=== PATIENT | female | born 1945 | race Caucasian/White ===

== ENCOUNTER → 2017-03-07 | Outpatient (CLI) | payer MEDICARE, SELFPAY | PROVIDERS: PCP Family Medicine; Visit Provider Family Medicine | DX: Z13.820 Encounter for screening for osteoporosis (principal); Z78.0 Asymptomatic menopausal state | CPT/HCPCS: 77080 ==

== ENCOUNTER → 2018-08-23 11:28 | Outpatient (CLI) | payer MEDICARE, SELFPAY ==
--- NOTE | 2018-08-23 11:34 | XR_ITS ---
XR foot LT min 3V HISTORY: ITS.REASON: LT FOOT PAIN ORDERING PHYSICIAN: Jacinto Davis MD PATIENT AGE: 73 years COMPARISON: None FINDINGS: There are moderate osteoarthritic changes of the midfoot at the first second and third and fourth metatarsal tarsal joints as well as the talonavicular joint and navicular cuneiform joint. No acute fracture or dislocation. Normal alignment. IMPRESSION: Mid foot osteoarthritis
== END ==
PROVIDERS: PCP Family Medicine; Visit Provider Family Medicine
DX: M79.672 Pain in left foot (principal)
CPT/HCPCS: 73630

== ENCOUNTER → 2018-08-28 08:44 | Outpatient (CLI) | payer MEDICARE, SELFPAY ==
--- NOTE | 2018-08-28 08:53 | CI_ITS ---
Cerebrovascular Exam Indications: Follow-up carotid 433.10. IMPRESSIONS 1. The bilateral vertebral arteries are patent with normal antegrade flow. 2. Study suggests 20-49% stenosis involving the right internal carotid artery. No change from the study of 26-Sep-2016. 3. Study suggests 20-49% stenosis involving the left internal carotid artery. No change from the study of 26-Sep-2016. History: Risk factors: Hypertension. Hyperlipidemia. Carotid duplex study. Complete study and Doppler flow study including spectral analysis, color and nguyen scale imaging. Height: Height: 160cm. Height: 63in. Weight: Weight: 84.8kg. Weight: 186.6lb. Body mass index: BMI: 33.1kg/m^2. Body surface area: BSA: 1.98m^2. Location: Vascular laboratory. Patient status: Outpatient. Tables: Arterial flow: + +--------+--------+ Location V sys V ed + +--------+--------+ Right CCA - proximal 131cm/s 37.7cm/s + +--------+--------+ Right CCA - distal 138cm/s 39.3cm/s + +--------+--------+ Right ECA 110cm/s 22.4cm/s + +--------+--------+ Right ICA - proximal 112cm/s 23.7cm/s + +--------+--------+ Right ICA - mid 91.2cm/s 25.5cm/s + +--------+--------+ Right ICA - distal 109cm/s 25.5cm/s + +--------+--------+ Right vertebral 37.6cm/s 14.7cm/s + +--------+--------+ Left CCA - proximal 106cm/s 31.4cm/s + +--------+--------+ Left CCA - distal 115cm/s 39.3cm/s + +--------+--------+ Left ECA 100cm/s 24.3cm/s + +--------+--------+ Left ICA - proximal 106cm/s 33.4cm/s + +--------+--------+ Left ICA - mid 98.3cm/s 33.3cm/s + +--------+--------+ Left ICA - distal 97.5cm/s 35.2cm/s + +--------+--------+ Left vertebral 22.2cm/s 7.5cm/s + +--------+--------+ Velocity ratios: + + + + + + Right, V sys Right, V ed Left, V sys Left, V ed + + + + + + Max ICA/dist CCA 0.81 0.65 0.92 0.9 + + + + + + (Report amended ) Electronically signed by: Juan J Marcos [id number]
== END ==
PROVIDERS: PCP Family Medicine; Visit Provider Family Medicine
DX: I65.23 Occlusion and stenosis of bilateral carotid arteries (principal)
CPT/HCPCS: 93880

== ENCOUNTER → 2018-09-19 10:46 | Outpatient (CLI) | payer MEDICARE, SELFPAY ==
[2018-09-19 12:05] LABS: Alanine Aminotransferase 23 U/L (12-78); Albumin Level 3.4 gm/dL (3.4-5.0); Alkaline Phosphatase 82 U/L (46-116); Anion Gap 9.8 mEq/L (5-15); Aspartate Amino Transferase 15 U/L (15-37); Bilirubin,Total 0.6 mg/dL (0.2-1.0); Blood Urea Nitrogen 13 mg/dL (7-18); Calcium 9.9 mg/dL (8.5-10.1); Carbon Dioxide 30 mmol/L (21.0-32.0); Chloride 107 mmol/L (98-107); Creatinine,Serum 0.88 mg/dL (0.55-1.02); Estimated Glomerular Filt Rate 63 ml/min (>60); GFR (African American) 76 ML/MIN (>60); Globulin 3.5 gm/dl (1.3-3.2); Glucose 88 mg/dL (74-106); Potassium 4.8 mmoL/L (3.5-5.1); Sodium 142 mmol/L (136-145); Total Protein,Serum 6.9 gm/dL (6.4-8.2)
[2018-09-19 16:12] LABS: Basophils # 0.1 K/mm3 (0-0.2); Basophils % 1.5 % (0.1-2.0); Eosinophils # 0.2 K/mm3 (0.0-0.4); Eosinophils % 2.4 % (0.1-12.0); Hematocrit 41.6 % (37.0-47.0); Hemoglobin 12.9 g/dL (12.2-16.2); Lymphocytes # 1.8 K/mm3 (0.7-4.5); Lymphocytes % 26.9 % (10-50); Mean Corpuscular HGB Conc 31.1 g/dL (31.8-35.4); Mean Corpuscular Hemoglobin 28.1 pg (27.0-31.2); Mean Corpuscular Volume 90.4 fl (81-99); Mean Platelet Volume 9.1 fl (7.4-10.4); Monocytes # 0.4 K/mm3 (0.1-1.0); Monocytes % 5.3 % (1.7-9.3); Neutrophils # 4.4 K/mm3 (1.8-7.8); Neutrophils % 63.8 % (37.0-80.0); Red Blood Count 4.61 M/mm3 (4.20-5.40); Red Cell Distribution Width 13.2 % (11.5-17.5); White Blood Count 6.8 K/mm3 (4.8-10.8)
[2018-09-19 17:41] LABS: Platelet Count 710 K/mm3 (142-424)
== END ==
PROVIDERS: Visit Provider Internal Medicine Medical Oncology
DX: D64.9 Anemia, unspecified (principal); D47.3 Essential (hemorrhagic) thrombocythemia
CPT/HCPCS: 36415; 80053; 81270; 85025

== ENCOUNTER → 2018-12-18 09:49 | Outpatient (CLI) | payer MEDICARE, SELFPAY ==
[2018-12-18 10:10] LABS: Basophils # 0.2 K/mm3 (0-0.2); Eosinophils # 0.2 K/mm3 (0.0-0.4); Eosinophils % 2.5 % (0.1-12.0); Hematocrit 43.2 % (37.0-47.0); Hemoglobin 12.7 g/dL (12.2-16.2); Lymphocytes # 2.4 K/mm3 (0.7-4.5); Mean Corpuscular HGB Conc 29.5 g/dL (31.8-35.4); Mean Corpuscular Hemoglobin 28.1 pg (27.0-31.2); Mean Corpuscular Volume 95.3 fl (81-99); Monocytes # 0.6 K/mm3 (0.1-1.0); Monocytes % 7.9 % (1.7-9.3); Neutrophils # 4.6 K/mm3 (1.8-7.8); Neutrophils % 57.6 % (37.0-80.0); Platelet Count 797 K/mm3 (142-424); Red Blood Count 4.53 M/mm3 (4.20-5.40); Red Cell Distribution Width 14.1 % (11.5-17.5)
[2018-12-18 11:15] LABS: Alanine Aminotransferase 26 U/L (12-78); Albumin Level 3.6 gm/dL (3.4-5.0); Albumin/Globulin Ratio 0.9 (1.1-1.8); Alkaline Phosphatase 82 U/L (46-116); Anion Gap 10.3 mEq/L (5-15); Aspartate Amino Transferase 18 U/L (15-37); Bilirubin,Total 0.6 mg/dL (0.2-1.0); Blood Urea Nitrogen 18 mg/dL (7-18); Calcium 10.3 mg/dL (8.5-10.1); Carbon Dioxide 31 mmol/L (21.0-32.0); Chloride 105 mmol/L (98-107); Creatinine,Serum 0.89 mg/dL (0.55-1.02); Estimated Glomerular Filt Rate 62 ml/min (>60); GFR (African American) 75 ML/MIN (>60); Globulin 3.8 gm/dl (1.3-3.2); Glucose 89 mg/dL (74-106); Potassium 5.3 mmoL/L (3.5-5.1); Sodium 141 mmol/L (136-145); Total Protein,Serum 7.4 gm/dL (6.4-8.2)
== END ==
PROVIDERS: Visit Provider Internal Medicine Medical Oncology
DX: D47.3 Essential (hemorrhagic) thrombocythemia (principal); I65.23 Occlusion and stenosis of bilateral carotid arteries
CPT/HCPCS: 36415; 80053; 81270; 85025

== ENCOUNTER → 2019-01-09 08:56 | Outpatient (CLI) | payer MEDICARE, SELFPAY ==
[2019-01-09 09:14] LABS: Basophils # 0.1 K/mm3 (0-0.2); Basophils % 1.7 % (0.1-2.0); Eosinophils # 0.2 K/mm3 (0.0-0.4); Eosinophils % 2.5 % (0.1-12.0); Hematocrit 42.5 % (37.0-47.0); Hemoglobin 13.4 g/dL (12.2-16.2); Lymphocytes # 2.8 K/mm3 (0.7-4.5); Lymphocytes % 35.2 % (10-50); Mean Corpuscular HGB Conc 31.5 g/dL (31.8-35.4); Mean Corpuscular Hemoglobin 29.5 pg (27.0-31.2); Mean Corpuscular Volume 93.7 fl (81-99); Mean Platelet Volume 9.1 fl (7.4-10.4); Monocytes # 0.5 K/mm3 (0.1-1.0); Monocytes % 6.6 % (1.7-9.3); Neutrophils # 4.2 K/mm3 (1.8-7.8); Neutrophils % 54.1 % (37.0-80.0); Platelet Count 698 K/mm3 (142-424); Red Blood Count 4.53 M/mm3 (4.20-5.40); Red Cell Distribution Width 13.5 % (11.5-17.5); White Blood Count 7.8 K/mm3 (4.8-10.8)
== END ==
PROVIDERS: Visit Provider Internal Medicine Medical Oncology
DX: D47.3 Essential (hemorrhagic) thrombocythemia (principal)
CPT/HCPCS: 36415; 85025

== ENCOUNTER → 2019-01-23 09:06 | Outpatient (CLI) | payer MEDICARE, SELFPAY ==
[2019-01-23 09:23] LABS: Basophils # 0.1 K/mm3 (0-0.2); Basophils % 1.5 % (0.1-2.0); Eosinophils # 0.3 K/mm3 (0.0-0.4); Eosinophils % 3.6 % (0.1-12.0); Hematocrit 43.3 % (37.0-47.0); Lymphocytes # 2.3 K/mm3 (0.7-4.5); Lymphocytes % 32.4 % (10-50); Mean Corpuscular HGB Conc 32.4 g/dL (31.8-35.4); Mean Corpuscular Volume 95.6 fl (81-99); Mean Platelet Volume 9.3 fl (7.4-10.4); Monocytes # 0.8 K/mm3 (0.1-1.0); Neutrophils # 3.6 K/mm3 (1.8-7.8); Neutrophils % 51.5 % (37.0-80.0); Platelet Count 600 K/mm3 (142-424); Red Blood Count 4.53 M/mm3 (4.20-5.40); Red Cell Distribution Width 14.3 % (11.5-17.5)
== END ==
PROVIDERS: Visit Provider Internal Medicine Medical Oncology
DX: D47.3 Essential (hemorrhagic) thrombocythemia (principal)
CPT/HCPCS: 36415; 85025

== ENCOUNTER → 2019-06-24 08:41 | Outpatient (CLI) | payer MEDICARE, SELFPAY ==
[2019-06-24 09:19] LABS: Basophils # 0.1 K/mm3 (0-0.2); Basophils % 1.6 % (0.1-2.0); Eosinophils # 0.1 K/mm3 (0.0-0.4); Eosinophils % 2.4 % (0.1-12.0); Hematocrit 41.6 % (37.0-47.0); Hemoglobin 13.2 g/dL (12.2-16.2); Lymphocytes % 34.5 % (10-50); Mean Corpuscular HGB Conc 31.7 g/dL (31.8-35.4); Mean Corpuscular Hemoglobin 32.4 pg (27.0-31.2); Mean Corpuscular Volume 102.1 fl (81-99); Mean Platelet Volume 8.5 fl (7.4-10.4); Monocytes # 0.4 K/mm3 (0.1-1.0); Monocytes % 6.6 % (1.7-9.3); Neutrophils # 3.2 K/mm3 (1.8-7.8); Neutrophils % 54.9 % (37.0-80.0); Platelet Count 551 K/mm3 (142-424); Red Blood Count 4.07 M/mm3 (4.20-5.40); Red Cell Distribution Width 13.7 % (11.5-17.5); White Blood Count 5.9 K/mm3 (4.8-10.8)
== END ==
PROVIDERS: Visit Provider Internal Medicine Medical Oncology
DX: D47.3 Essential (hemorrhagic) thrombocythemia (principal)
CPT/HCPCS: 36415; 85025

== ENCOUNTER → 2019-09-03 08:47 | Outpatient (CLI) | payer MEDICARE, SELFPAY ==
--- NOTE | 2019-09-03 08:50 | XR_ITS ---
PROCEDURE: XR DEXA AXIAL SKELETON CLINICAL HISTORY: OSTEOPENIA l COMPARISON: No exams were available for comparison FINDINGS: The Right Hip BMD is 0.735 with a T-Score of -1.0. The Left hip BMD is 0.638 with a T-Score of -1.9. The Lumbar spine BMD is 1.010 with a T-Score of -0.3. IMPRESSION: This patient is considered osteopenic according to the World Health Organization criteria. Fracture risk is moderate. Treatment is advised. Based on these results of follow-up exam is recommended in 2 years Dictated by: Juan J Marcos MD 09/08/2019 21:39 Electronically signed by Juan J Marcos MD in [place] 09/09/2019 07:53
== END ==
PROVIDERS: PCP Family Medicine; Visit Provider Family Medicine
DX: M85.89 Other specified disorders of bone density and structure, multiple sites (principal)
CPT/HCPCS: 77080

== ENCOUNTER → 2019-09-23 07:59 | Outpatient (CLI) | payer MEDICARE, SELFPAY ==
[2019-09-23 08:58] LABS: Basophils # 0.1 K/mm3 (0-0.2); Eosinophils # 0.2 K/mm3 (0.0-0.4); Eosinophils % 2.7 % (0.1-12.0); Hematocrit 40.3 % (37.0-47.0); Hemoglobin 13.3 g/dL (12.2-16.2); Lymphocytes # 2.8 K/mm3 (0.7-4.5); Lymphocytes % 43.3 % (10-50); Mean Corpuscular Hemoglobin 34.3 pg (27.0-31.2); Mean Corpuscular Volume 104.2 fl (81-99); Mean Platelet Volume 8.5 fl (7.4-10.4); Monocytes # 0.4 K/mm3 (0.1-1.0); Monocytes % 5.7 % (1.7-9.3); Neutrophils % 46.3 % (37.0-80.0); Platelet Count 516 K/mm3 (142-424); Red Blood Count 3.87 M/mm3 (4.20-5.40); Red Cell Distribution Width 14.2 % (11.5-17.5); White Blood Count 6.6 K/mm3 (4.8-10.8)
== END ==
PROVIDERS: Visit Provider Internal Medicine Medical Oncology
DX: D47.3 Essential (hemorrhagic) thrombocythemia (principal); Z79.899 Other long term (current) drug therapy
CPT/HCPCS: 36415; 85025

== ENCOUNTER → 2019-12-18 12:23 | Outpatient (CLI) | payer MEDICARE, SELFPAY ==
[2019-12-18 13:09] LABS: Basophils # 0.1 K/mm3 (0-0.2); Basophils % 1.7 % (0.1-2.0); Eosinophils # 0.1 K/mm3 (0.0-0.4); Eosinophils % 1.7 % (0.1-12.0); Hematocrit 43.1 % (37.0-47.0); Hemoglobin 13.6 g/dL (12.2-16.2); Lymphocytes # 2.5 K/mm3 (0.7-4.5); Lymphocytes % 34.9 % (10-50); Mean Corpuscular HGB Conc 31.6 g/dL (31.8-35.4); Mean Corpuscular Hemoglobin 33.7 pg (27.0-31.2); Mean Corpuscular Volume 106.7 fl (81-99); Mean Platelet Volume 8.1 fl (7.4-10.4); Monocytes # 0.5 K/mm3 (0.1-1.0); Monocytes % 6.9 % (1.7-9.3); Neutrophils % 54.8 % (37.0-80.0); Platelet Count 588 K/mm3 (142-424); Red Blood Count 4.04 M/mm3 (4.20-5.40); Red Cell Distribution Width 13.9 % (11.5-17.5); White Blood Count 7.3 K/mm3 (4.8-10.8)
[2019-12-18 14:52] LABS: Chloride 101 mmol/L (98-107); Sodium 140 mmol/L (136-145)
[2019-12-18 14:53] LABS: Potassium 5.1 mmoL/L (3.5-5.1)
[2019-12-18 14:55] LABS: Alanine Aminotransferase 22 U/L (12-78); Albumin Level 4.6 g/dl (3.5-5.0); Albumin/Globulin Ratio 1.4 (1.1-1.8); Alkaline Phosphatase 83 U/L (38-126); Anion Gap 14.1 mEq/L (5-15); Aspartate Amino Transferase 31 U/L (14-36); Bilirubin,Total 0.8 mg/dl (0.2-1.3); Blood Urea Nitrogen 19 mg/dl (7-17); Carbon Dioxide 30 mmol/L (22.0-30.0); Estimated Glomerular Filt Rate 70 ml/min (>60); GFR (African American) 85 ML/MIN (>60); Globulin 3.4 g/dL (1.3-3.2)
[2019-12-18 14:56] LABS: Calcium 10.9 mg/dl (8.4-10.2); Glucose 85 mg/dl (74-100)
== END ==
PROVIDERS: Visit Provider Internal Medicine Medical Oncology
DX: D47.3 Essential (hemorrhagic) thrombocythemia (principal)
CPT/HCPCS: 36415; 80053; 85025

== ENCOUNTER 2020-03-13 08:59 | Emergency (ER) | payer MEDICARE, SELFPAY ==
[2020-03-13 09:05] VITALS: BP 134/72; PULSE 67; RESP 20; TEMP 36.8; O2SAT 99; BMI 31.8
--- NOTE | 2020-03-13 09:27 | HMH.EDUTC ---
[facility] [place] Disposition Clinical Impression: Exposure to COVID-19 virus Disposition: Home, Self-Care Condition on Discharge: Good Instructions: DI for COVID-19 (Suspected or Confirmed ), Preventing the Spread of Coronavirus Discharge Instructions Additional Instructions: Drink plenty of fluids. Take tylenol for pain or fever. Return if you begin to have difficulty breathing. Follow up with your regular doctor. GO TO THE ER FOR ANY WORSENING SYMPTOMS Referrals: Jacinto Davis MD [Primary Care Provider] - Time of Disposition: 09:39 Medical Decision Making - Medical Records Medical records reviewed: No: I reviewed the patient's medical records. - Lucio Inquiry Pt receiving controlled substance: No Vital Signs: 03/13/20 09:05 03/13/20 09:50 Temperature 98.3 F 98.3 F Temperature Source Oral Pulse Rate 67 Pulse Rate [Right Brachial] 67 Respiratory Rate 20 20 Blood Pressure 134/72 Blood Pressure [Right Arm] 134/72 Blood Pressure Mean [Right Arm] 92 Blood Pressure Source [Right Arm] Automatic Cuff Blood Pressure Position [Right Arm] Sitting 02 Sat by Pulse Oximetry 99 Oxygen Delivery Method Room Air Orders (Tests/Meds): ORDERS Category Date Time Status Covid-19 Nasal PCR ([facility]) Routine Lab 03/13/20 09:15 Received [facility] [place] HPI - General Stated complaint: covid exposure Time Seen by Provider: 03/13/20 09:27 - History of Present Illness Provider Complaint: She states that she has been exposed to covid by a family member. This occured several days ago. She denies any symptoms so far. - Related Data Home Medications Medication Instructions Recorded Confirmed lisinopril 20 1 tab PO DAILY 09/19/18 02/26/20 mg-hydrochlorothiazide 12.5 mg tablet simvastatin 20 mg tablet 20 mg PO QPM 09/19/18 02/26/20 hydroxyurea 500 mg capsule 500 mg PO DAILY 09/25/19 02/26/20 Allergies Allergy/AdvReac Type Severity Reaction Status Date / Time No Known Allergies Allergy Verified 09/25/19 10:51 [facility] History - Hepatitis A Screen Attestation statement:: This patient has been screened for Hepatitis A risk factors. I have reviewed the patient's past medical history: Yes Other Medical History: Reports: Hypothyroidism Laterality Cases: Left: Breast Biopsy Other Surgeries: Yes: Thyroidectomy, Other - Social History Smoking Status: Never smoker Alcohol Intake: never Substance Use Type: denies use Occupational Status: retired Housing: house Family Hx:: Cancer Comment: dad had CHF ROS Obtained: Yes All systems reviewed & no additional complaints - Constitutional Constitutional: Reports system reviewed and no additional complaints, except as docu - Eyes Eyes: Reports system reviewed and no additional complaints, except as docu - ENT Ears, Nose, Mouth, and Throat: Reports system reviewed and no additional complaints, except as docu - Cardiovascular Cardiovascular: Reports system reviewed and no additional complaints, except as docu - Respiratory Respiratory: Yes system reviewed and no additional complaints, except as docu - Gastrointestinal Gastrointestingal: Reports: system reviewed and no additional complaints, except as docu Physical Exam - General General appearance: alert, in no apparent distress - Head Head exam: atraumatic, normocephalic, normal inspection - Eye Eye exam: Present: normal appearance, PERRL, EOMI - ENT ENT exam: Present: normal exam, normal oropharynx, mucous membranes moist, TM's normal bilaterally, normal external ear exam - Neck Neck exam: Present: normal inspection, full ROM, trachea midline. Absent: meningismus, lymphadenopathy - Chest Chest inspection: Present: normal inspection, symmetric chest wall rise. Absent: tenderness - Respiratory Respiratory exam: Present: normal lung sounds bilaterally. Absent: respiratory distress - Cardiovascular Cardiovascular exam: Present: regular rate, normal rhythm. A
[2020-03-13 09:50] VITALS: BP 134/72; PULSE 67; RESP 20; TEMP 36.8; O2SAT 99
--- NOTE | 2020-03-13 13:34 | PC.NURSE ---
patient notified of positive covid results
== END 2020-03-13 09:50 | disposition home or self-care (01) ==
PROVIDERS: Emergency Provider Nurse Practitioner Family; PCP Family Medicine
DX: U07.1 COVID-19 (principal); I10 Essential (primary) hypertension; E03.9 Hypothyroidism, unspecified; Z79.899 Other long term (current) drug therapy
CPT/HCPCS: G0463; 99202; U0003

== ENCOUNTER → 2020-06-28 08:56 | Outpatient (CLI) | payer MEDICARE, SELFPAY ==
[2020-06-28 09:11] LABS: Basophils # 0.1 K/mm3 (0-0.2); Basophils % 2.2 % (0.1-2.0); Eosinophils # 0.2 K/mm3 (0.0-0.4); Eosinophils % 2.9 % (0.1-12.0); Hematocrit 41.6 % (37.0-47.0); Hemoglobin 13.3 g/dL (12.2-16.2); Lymphocytes # 2.9 K/mm3 (0.7-4.5); Lymphocytes % 44.9 % (10-50); Mean Corpuscular Hemoglobin 32.9 pg (27.0-31.2); Mean Corpuscular Volume 102.9 fl (81-99); Mean Platelet Volume 8.6 fl (7.4-10.4); Monocytes # 0.5 K/mm3 (0.1-1.0); Monocytes % 7.8 % (1.7-9.3); Neutrophils # 2.7 K/mm3 (1.8-7.8); Neutrophils % 42.2 % (37.0-80.0); Platelet Count 567 K/mm3 (142-424); Red Blood Count 4.05 M/mm3 (4.20-5.40); Red Cell Distribution Width 14.7 % (11.5-17.5); White Blood Count 6.4 K/mm3 (4.8-10.8)
[2020-06-28 09:56] LABS: Alanine Aminotransferase 38 U/L (12-78); Albumin Level 4.1 g/dl (3.5-5.0); Albumin/Globulin Ratio 1.2 (1.1-1.8); Alkaline Phosphatase 80 U/L (38-126); Aspartate Amino Transferase 35 U/L (14-36); Bilirubin,Total 0.4 mg/dl (0.2-1.3); Blood Urea Nitrogen 17 mg/dl (7-17); Calcium 10.4 mg/dl (8.4-10.2); Carbon Dioxide 27 mmol/L (22.0-30.0); Chloride 107 mmol/L (98-107); Estimated Glomerular Filt Rate 70 ml/min (>60); GFR (African American) 85 ML/MIN (>60); Globulin 3.3 g/dL (1.3-3.2); Glucose 99 mg/dl (74-100); Sodium 142 mmol/L (136-145); Total Protein,Serum 7.4 g/dl (6.3-8.2)
== END ==
PROVIDERS: Visit Provider Internal Medicine Medical Oncology
DX: D64.9 Anemia, unspecified (principal)
CPT/HCPCS: 36415; 80053; 85025

== ENCOUNTER → 2020-07-10 10:40 | Outpatient (CLI) | payer MEDICARE, SELFPAY | PROVIDERS: PCP Family Medicine; Visit Provider Family Medicine | DX: Z20.822 Contact with and (suspected) exposure to COVID-19 (principal); U07.1 COVID-19 | CPT/HCPCS: U0003 ==

== ENCOUNTER → 2020-08-30 13:16 | Outpatient (CLI) | payer MEDICARE, SELFPAY ==
--- NOTE | 2020-08-30 | CA_ITS ---
APPROVED REPORT Stucco Plasterer: CT Laterality: Bilateral Study Quality: Adequate Indications: GELA Risk Factors Hypertension: Hyperlipidemia Doppler Spectral Velocity Analysis ECA (R) 72.00/ cm/s ECA (L) 84.80/ cm/s dICA (R) 68.50/27.40 cm/s dICA (L) 84.10/32.10 cm/s David (R) 91.70/35.10 cm/s David (L) 72.60/25.00 cm/s pICA (R) 104.50/33.40 cm/s pICA (L) 63.60/23.80 cm/s dCCA (R) 109.20/35.90 cm/s dCCA (L) 101.10/32.60 cm/s pCCA (R) 116.00/35.20 cm/s pCCA (L) 102.80/30.80 cm/s Vert (R) 6.80/ cm/s Vert (L) 36.90/ cm/s ICA/CCA 1.00 ICA/CCA 0.80 Findings Duplex evaluation demonstrates stenosis of the right proximal internal carotid artery in the range of 20-49%. No change. Duplex evaluation demonstrates stenosis of the left proximal internal carotid artery in the range of 20-49%.No change. Duplex evaluation demonstrates antegrade flow of the bilateral Vertebral Arteries. Conclusion Duplex evaluation demonstrates stenosis of the right proximal internal carotid artery in the range of 20-49%. No change. Duplex evaluation demonstrates stenosis of the left proximal internal carotid artery in the range of 20-49%.No change. Duplex evaluation demonstrates antegrade flow of the bilateral Vertebral Arteries. Electronically signed by : Juan J Marcos MD 08/30/2020 16:30:46
--- NOTE | 2020-08-30 14:11 | ECG_ITS ---
APPROVED REPORT Exam: Resting ECG HR:58 bpm ECG Measurements Heart Rate 58 AXES MA 164 P 29 QRSd 78 QRS 32 QT 438 T 24 QTc 429 Conclusion Sinus bradycardia Otherwise normal ECG Electronically signed by : Vamsi Oviedo, 09/01/2020 17:40:27
== END ==
PROVIDERS: PCP Family Medicine; Visit Provider Family Medicine
DX: I65.23 Occlusion and stenosis of bilateral carotid arteries (principal)
CPT/HCPCS: 93005; 93880

== ENCOUNTER → 2020-12-28 07:49 | Outpatient (CLI) | payer MEDICARE, SELFPAY ==
[2020-12-28 08:04] LABS: Basophils # 0.2 K/mm3 (0-0.2); Basophils % 2.2 % (0.1-2.0); Eosinophils # 0.2 K/mm3 (0.0-0.4); Eosinophils % 2.3 % (0.1-12.0); Hematocrit 44.9 % (37.0-47.0); Hemoglobin 13.7 g/dL (12.2-16.2); Lymphocytes # 2.9 K/mm3 (0.7-4.5); Lymphocytes % 41.2 % (10-50); Mean Corpuscular HGB Conc 30.6 g/dL (31.8-35.4); Mean Corpuscular Hemoglobin 33.7 pg (27.0-31.2); Mean Corpuscular Volume 110.3 fl (81-99); Mean Platelet Volume 8.8 fl (7.4-10.4); Monocytes # 0.4 K/mm3 (0.1-1.0); Monocytes % 6.1 % (1.7-9.3); Neutrophils # 3.4 K/mm3 (1.8-7.8); Neutrophils % 48.2 % (37.0-80.0); Platelet Count 717 K/mm3 (142-424); Red Blood Count 4.07 M/mm3 (4.20-5.40); Red Cell Distribution Width 14.8 % (11.5-17.5); White Blood Count 7.1 K/mm3 (4.8-10.8)
[2020-12-28 09:13] LABS: Chloride 104 mmol/L (98-107); Potassium 4.8 mmoL/L (3.5-5.1); Sodium 141 mmol/L (136-145)
[2020-12-28 09:16] LABS: Alanine Aminotransferase 21 U/L (12-78); Albumin Level 3.9 g/dl (3.5-5.0); Albumin/Globulin Ratio 1.1 (1.1-1.8); Alkaline Phosphatase 90 U/L (38-126); Anion Gap 12.8 mEq/L (5-15); Aspartate Amino Transferase 29 U/L (14-36); Bilirubin,Total 0.5 mg/dl (0.2-1.3); Blood Urea Nitrogen 14 mg/dl (7-17); Carbon Dioxide 29 mmol/L (22.0-30.0); Estimated Glomerular Filt Rate 82 ml/min (>60); GFR (African American) 99 ML/MIN (>60); Globulin 3.5 g/dL (1.3-3.2); Total Protein,Serum 7.4 g/dl (6.3-8.2)
[2020-12-28 09:17] LABS: Glucose 101 mg/dl (74-100)
== END ==
PROVIDERS: Visit Provider Internal Medicine Medical Oncology
DX: D64.9 Anemia, unspecified (principal)
CPT/HCPCS: 36415; 80053; 85025

== ENCOUNTER → 2021-07-25 08:40 | Outpatient (CLI) | payer MEDICARE, SELFPAY ==
[2021-07-25 08:58] LABS: Basophils # 0.2 K/mm3 (0-0.2); Basophils % 2.8 % (0.1-2.0); Eosinophils # 0.1 K/mm3 (0.0-0.4); Eosinophils % 2.3 % (0.1-12.0); Hematocrit 40.1 % (37.0-47.0); Hemoglobin 12.8 g/dL (12.2-16.2); Lymphocytes # 2.5 K/mm3 (0.7-4.5); Lymphocytes % 41.9 % (10-50); Mean Corpuscular Hemoglobin 36.1 pg (27.0-31.2); Monocytes # 0.4 K/mm3 (0.1-1.0); Neutrophils # 2.7 K/mm3 (1.8-7.8); Neutrophils % 45.9 % (37.0-80.0); Platelet Count 684 K/mm3 (142-424); Red Blood Count 3.55 M/mm3 (4.20-5.40); White Blood Count 5.9 K/mm3 (4.8-10.8)
[2021-07-25 09:46] LABS: Alanine Aminotransferase 17 U/L (12-78); Albumin Level 3.8 g/dl (3.5-5.0); Albumin/Globulin Ratio 1.2 (1.1-1.8); Alkaline Phosphatase 87 U/L (38-126); Anion Gap 11.7 mEq/L (5-15); Aspartate Amino Transferase 23 U/L (14-36); Bilirubin,Total 0.2 mg/dl (0.2-1.3); Blood Urea Nitrogen 17 mg/dl (7-17); Calcium 9.9 mg/dl (8.4-10.2); Carbon Dioxide 28 mmol/L (22.0-30.0); Chloride 104 mmol/L (98-107); Estimated Glomerular Filt Rate 61 ml/min (>60); GFR (African American) 74 ML/MIN (>60); Globulin 3.2 g/dL (1.3-3.2); Glucose 99 mg/dl (74-100); Potassium 4.7 mmoL/L (3.5-5.1); Sodium 139 mmol/L (136-145)
== END ==
PROVIDERS: Visit Provider Internal Medicine Medical Oncology
DX: D64.9 Anemia, unspecified (principal)
CPT/HCPCS: 36415; 80053; 85025

== ENCOUNTER → 2021-08-29 08:48 | Outpatient (CLI) | payer MEDICARE, SELFPAY ==
--- NOTE | 2021-08-29 08:51 | XR_ITS ---
FINAL REPORT TECHNIQUE: Bone mineral density was calculated of the lumbar spine and hips. CLINICAL HISTORY: .osteopenia COMPARISON: September 03, 2019 FINDINGS: DEXA BONE DENSITY AXIAL SKELETON Using L1-4, the bone mineral density of the spine is 1.117 g/cm2, corresponding to T-score of 0.6. The bone mineral density was previously measured at 1.010 g/cm2, corresponding to a T-score of -0.3 Note these values may be falsely elevated secondary to hypertrophic change. Using the left hip, the bone mineral density of the femoral neck is 0.735 g/cm2, corresponding to a T-score of -1.7. The bone mineral density was previously measured at 0.638 g/cm2, corresponding to a T-score of -1.9 Using the right hip, the bone mineral density of the femoral neck is 0.661 g/cm2, corresponding to a T-score of -1.7. The bone mineral density was previously measured at 0.735 g/cm2, corresponding to a T-score of -1.0 NOTE: T-score: Standard deviation compared with peak bone mass of young adult mean. *Following the recommendations of the International Society of Bone densitometry, classification of hip BMD is based on the lower of two T-scores; total hip or femoral neck. IMPRESSION: Diminished bone mineral density of the lumbar spine and hips consistent with osteopenia. Reviewed, Interpreted and Dictated by Jeison Nair III, MD Transcribed by Leonor Borrero Authenticated and [facility]
== END ==
PROVIDERS: PCP Family Medicine; Visit Provider Family Medicine
DX: M85.89 Other specified disorders of bone density and structure, multiple sites (principal)
CPT/HCPCS: 77080

== ENCOUNTER → 2021-09-28 12:34 | Outpatient (CLI) | payer MEDICARE, SELFPAY ==
--- NOTE | 2021-09-28 12:58 | MR_ITS ---
FINAL REPORT CLINICAL HISTORY: Leg pain, low back pain, prior back surgery 38 years ago FINDINGS: Multiplanar MR imaging of the lumbar spine was performed without contrast. On the sagittal T2-weighted images, disc degeneration is seen at multiple levels. Endplate changes are seen at multiple levels. The vertebral alignment is normal. There is no evidence of fracture. The conus has an unremarkable appearance. L1-2: An annular bulge and facet arthropathy are present. There is a small left paracentral disc protrusion. There is no significant canal stenosis or neural foraminal narrowing. L2-3: An annular bulge is present. Facet arthropathy and osteophytes are present. There is moderate bilateral neural foraminal narrowing. L3-4: An annular bulge is present. Facet arthropathy and osteophytes are present. There is a right foraminal disc protrusion resulting in right L4 nerve root impingement. There is moderate right and mild left neural foraminal narrowing. There is mild central canal stenosis with AP diameter of the thecal sac of 8 mm. L4-5: An annular bulge is present. Facet arthropathy and osteophytes are present. There is mild right and moderate left neural foraminal narrowing. L5-S1: An annular bulge is present. Facet arthropathy and osteophytes are present. There is severe right and moderate left neural foraminal narrowing. Note is made of spurring of the sacroiliac joints. IMPRESSION: Right foraminal disc protrusion at L3-4 results in right L4 nerve root impingement and mild central canal stenosis. Small left paracentral disc protrusion at L1-2. Multilevel degenerative disc disease and spondylosis. Reviewed, Interpreted and Dictated by Jeison Nair III, MD Transcribed by Natasha Lucio Authenticated and . [facility]
== END ==
PROVIDERS: PCP Family Medicine; Visit Provider Specialist
DX: M54.50 Low back pain, unspecified (principal); M47.27 Other spondylosis with radiculopathy, lumbosacral region
CPT/HCPCS: 72148; 72158; 76376

== ENCOUNTER → 2021-10-18 08:19 | Outpatient (CLI) | payer MEDICARE, SELFPAY ==
--- NOTE | 2021-10-18 08:22 | XR_ITS ---
FINAL REPORT CLINICAL HISTORY: Leg pain, left leg muscle spasms FINDINGS: LUMBAR SPINE Six views demonstrate no acute fracture. Moderate and severe degenerative changes are present. There is mild chronic wedging of L1. There is vacuum phenomenon at several levels. There is 16 mm medial right upper lobe presumed calcifications versus ingested pills. Postoperative changes seen in the right upper quadrant. There is no malalignment. IMPRESSION: Degenerative changes as detailed above. Presumed calcifications versus ingested pills. If indicated, follow-up radiographs may be helpful. Reviewed, Interpreted and Dictated by Jeison Nair III, MD Transcribed by Natasha Lucio Authenticated and [facility]
[2021-10-18 10:52] LABS: Vitamin B12 546 pg/mL (239-931)
== END ==
PROVIDERS: PCP Family Medicine; Visit Provider Specialist
DX: M47.27 Other spondylosis with radiculopathy, lumbosacral region (principal)
CPT/HCPCS: 36415; 72110; 82607

== ENCOUNTER → 2022-02-06 09:18 | Outpatient (CLI) | payer MEDICARE, SELFPAY ==
[2022-02-06 10:06] LABS: Basophils # 0.1 K/mm3 (0-0.2); Basophils % 1.7 % (0.1-2.0); Eosinophils # 0.1 K/mm3 (0.0-0.4); Eosinophils % 2.6 % (0.1-12.0); Hematocrit 38.4 % (37.0-47.0); Hemoglobin 11.6 g/dL (12.2-16.2); Lymphocytes # 2.4 K/mm3 (0.7-4.5); Lymphocytes % 45.4 % (10-50); Mean Corpuscular HGB Conc 30.2 g/dL (31.8-35.4); Mean Corpuscular Hemoglobin 35.1 pg (27.0-31.2); Mean Corpuscular Volume 116.2 fl (81-99); Mean Platelet Volume 9.8 fl (7.4-10.4); Monocytes # 0.4 K/mm3 (0.1-1.0); Monocytes % 7.7 % (1.7-9.3); Neutrophils # 2.3 K/mm3 (1.8-7.8); Neutrophils % 42.6 % (37.0-80.0); Platelet Count 626 K/mm3 (142-424); Red Cell Distribution Width 18.5 % (11.5-17.5); White Blood Count 5.3 K/mm3 (4.8-10.8)
[2022-02-06 10:46] LABS: Alanine Aminotransferase 17 U/L (12-78); Albumin/Globulin Ratio 1.3 (1.1-1.8); Alkaline Phosphatase 105 U/L (38-126); Anion Gap 17.8 mEq/L (5-15); Aspartate Amino Transferase 30 U/L (14-36); Bilirubin,Total 0.4 mg/dl (0.2-1.3); Blood Urea Nitrogen 17 mg/dl (7-17); Calcium 10.1 mg/dl (8.4-10.2); Carbon Dioxide 31 mmol/L (22.0-30.0); Chloride 97 mmol/L (98-107); Estimated Glomerular Filt Rate 61 ml/min (>60); GFR (African American) 74 ML/MIN (>60); Globulin 3.1 g/dL (1.3-3.2); Glucose 93 mg/dl (74-100); Potassium 4.8 mmoL/L (3.5-5.1); Sodium 141 mmol/L (136-145); Total Protein,Serum 7.1 g/dl (6.3-8.2)
== END ==
PROVIDERS: PCP Family Medicine; Visit Provider Internal Medicine Medical Oncology
DX: D69.6 Thrombocytopenia, unspecified (principal)
CPT/HCPCS: 36415; 80053; 85025

== ENCOUNTER → 2022-04-10 07:49 | Outpatient (CLI) | payer MEDICARE, SELFPAY ==
[2022-04-10 08:08] LABS: Basophils # 0.1 K/mm3 (0-0.2); Basophils % 2.4 % (0.1-2.0); Eosinophils # 0.1 K/mm3 (0.0-0.4); Eosinophils % 2.2 % (0.1-12.0); Hematocrit 40.3 % (37.0-47.0); Hemoglobin 12.5 g/dL (12.2-16.2); Lymphocytes # 2.6 K/mm3 (0.7-4.5); Mean Platelet Volume 9.8 fl (7.4-10.4); Monocytes # 0.4 K/mm3 (0.1-1.0); Monocytes % 6.9 % (1.7-9.3); Neutrophils # 2.5 K/mm3 (1.8-7.8); Neutrophils % 43.5 % (37.0-80.0); Platelet Count 670 K/mm3 (142-424); Red Blood Count 3.57 M/mm3 (4.20-5.40); White Blood Count 5.8 K/mm3 (4.8-10.8)
== END ==
PROVIDERS: PCP Family Medicine; Visit Provider Internal Medicine Medical Oncology
DX: D75.838 Other thrombocytosis (principal)
CPT/HCPCS: 36415; 85025

== ENCOUNTER → 2022-08-15 07:58 | Outpatient (CLI) | payer MEDICARE, SELFPAY ==
[2022-08-15 10:22] LABS: Basophils # 0.1 K/mm3 (0-0.2); Basophils % 1.3 % (0.1-2.0); Eosinophils # 0.1 K/mm3 (0.0-0.4); Eosinophils % 2.1 % (0.1-12.0); Hematocrit 35.3 % (37.0-47.0); Hemoglobin 10.6 g/dL (12.2-16.2); Lymphocytes # 2.5 K/mm3 (0.7-4.5); Lymphocytes % 46.9 % (10-50); Mean Corpuscular HGB Conc 30.1 g/dL (31.8-35.4); Mean Corpuscular Hemoglobin 34.3 pg (27.0-31.2); Mean Platelet Volume 9.8 fl (7.4-10.4); Monocytes # 0.4 K/mm3 (0.1-1.0); Monocytes % 6.8 % (1.7-9.3); Neutrophils # 2.3 K/mm3 (1.8-7.8); Neutrophils % 42.8 % (37.0-80.0); Platelet Count 564 K/mm3 (142-424); Red Cell Distribution Width 20.1 % (11.5-17.5); White Blood Count 5.4 K/mm3 (4.8-10.8)
[2022-08-15 10:44] LABS: Alanine Aminotransferase 19 U/L (12-78); Albumin Level 3.7 g/dl (3.5-5.0); Albumin/Globulin Ratio 1.2 (1.1-1.8); Alkaline Phosphatase 79 U/L (38-126); Anion Gap 12.4 mEq/L (5-15); Aspartate Amino Transferase 25 U/L (14-36); Bilirubin,Total 0.4 mg/dl (0.2-1.3); Blood Urea Nitrogen 16 mg/dl (7-17); Calcium 9.2 mg/dl (8.4-10.2); Carbon Dioxide 29 mmol/L (22.0-30.0); Chloride 105 mmol/L (98-107); Estimated Glomerular Filt Rate 70 ml/min (>60); GFR (African American) 84 ML/MIN (>60); Glucose 92 mg/dl (74-100); Potassium 5.4 mmoL/L (3.5-5.1); Sodium 141 mmol/L (136-145); Total Protein,Serum 6.7 g/dl (6.3-8.2)
[2022-08-17 11:32] LABS: Iron 74 ug/dL (37-170)
[2022-08-17 11:41] LABS: Total Iron Binding Capacity 288 ug/dL (265-497)
[2022-08-17 12:07] LABS: Ferritin 137 ng/ml (11.1-264)
== END ==
PROVIDERS: PCP Family Medicine; Visit Provider Internal Medicine Medical Oncology
DX: D75.839 Thrombocytosis, unspecified (principal); D64.9 Anemia, unspecified
CPT/HCPCS: 36415; 80053; 82728; 83540; 83550; 85025

== ENCOUNTER → 2022-08-28 12:32 | Outpatient (CLI) | payer MEDICARE, SELFPAY ==
--- NOTE | 2022-08-28 | CA_ITS ---
FINAL REPORT TECHNIQUE: Color Doppler, duplex Doppler and nguyen scale sonography of the bilateral neck arterial vasculature was performed. Velocities were measured in the carotid arteries. Stenosis evaluation based on the validated velocity criteria. CLINICAL HISTORY: HTN, HLD, GELA COMPARISON: None FINDINGS: The peak systolic velocity of the right common carotid artery is 116 cm/s. The peak systolic velocity of the right internal carotid artery is 107 cm/s and end diastolic velocity 45 cm/s. The ICA/CCA ratio is 0.93. A minimal amount of plaque is present. The right external carotid artery is patent. The right vertebral artery is patent with antegrade flow. The peak systolic velocity of the left common carotid artery is 108 cm/s. The peak systolic velocity of the left internal carotid artery is 134 cm/s and end diastolic velocity 37 cm/s. The ICA/CCA ratio is 1.4. A minimal amount of plaque is present. The left external carotid artery is patent.The left vertebral artery is patent with antegrade flow. IMPRESSION: Less than 50% bilateral carotid stenoses. Bilateral patent vertebral arteries with antegrade flow. If indicated, CTA or MRA could further evaluate. Reviewed, Interpreted and Dictated by Larry Grigsby MD Transcribed by Princess Hook Authenticated and [facility]
== END ==
PROVIDERS: PCP Family Medicine; Visit Provider Family Medicine
DX: I65.23 Occlusion and stenosis of bilateral carotid arteries (principal)
CPT/HCPCS: 93880

== ENCOUNTER → 2022-09-25 07:59 | Outpatient (CLI) | payer MEDICARE, SELFPAY ==
[2022-09-25 08:22] LABS: Basophils # 0.1 K/mm3 (0-0.2); Basophils % 1.3 % (0.1-2.0); Eosinophils # 0.1 K/mm3 (0.0-0.4); Eosinophils % 1.8 % (0.1-12.0); Hematocrit 36.6 % (37.0-47.0); Hemoglobin 11.1 g/dL (12.2-16.2); Lymphocytes # 2.3 K/mm3 (0.7-4.5); Mean Corpuscular HGB Conc 30.5 g/dL (31.8-35.4); Mean Corpuscular Hemoglobin 33.4 pg (27.0-31.2); Mean Corpuscular Volume 109.7 fl (81-99); Mean Platelet Volume 10.2 fl (7.4-10.4); Monocytes # 0.4 K/mm3 (0.1-1.0); Monocytes % 6.9 % (1.7-9.3); Neutrophils % 51.1 % (37.0-80.0); Platelet Count 628 K/mm3 (142-424); Red Blood Count 3.33 M/mm3 (4.20-5.40); Red Cell Distribution Width 20.2 % (11.5-17.5); White Blood Count 5.9 K/mm3 (4.8-10.8)
[2022-09-25 11:25] LABS: Vitamin B12 523 pg/mL (239-931)
[2022-09-25 11:26] LABS: Folate > 20.00 ng/mL
== END ==
PROVIDERS: PCP Family Medicine; Visit Provider Internal Medicine Medical Oncology
DX: D75.839 Thrombocytosis, unspecified (principal)
CPT/HCPCS: 36415; 82607; 82746; 85025

== ENCOUNTER → 2022-11-27 08:33 | Outpatient (CLI) | payer MEDICARE, SELFPAY ==
[2022-11-27 09:12] LABS: Basophils # 0.1 K/mm3 (0-0.2); Basophils % 2.1 % (0.1-2.0); Eosinophils # 0.1 K/mm3 (0.0-0.4); Eosinophils % 2.1 % (0.1-12.0); Hematocrit 39.2 % (37.0-47.0); Hemoglobin 11.8 g/dL (12.2-16.2); Lymphocytes # 2.5 K/mm3 (0.7-4.5); Lymphocytes % 44.4 % (10-50); Mean Corpuscular HGB Conc 29.9 g/dL (31.8-35.4); Mean Corpuscular Hemoglobin 33.5 pg (27.0-31.2); Mean Corpuscular Volume 111.9 fl (81-99); Mean Platelet Volume 10.2 fl (7.4-10.4); Monocytes # 0.4 K/mm3 (0.1-1.0); Monocytes % 7.2 % (1.7-9.3); Neutrophils # 2.5 K/mm3 (1.8-7.8); Neutrophils % 44.1 % (37.0-80.0); Platelet Count 618 K/mm3 (142-424); Red Blood Count 3.51 M/mm3 (4.20-5.40); Red Cell Distribution Width 20.8 % (11.5-17.5); White Blood Count 5.6 K/mm3 (4.8-10.8)
== END ==
PROVIDERS: PCP Family Medicine; Visit Provider Internal Medicine Medical Oncology
DX: D75.839 Thrombocytosis, unspecified
CPT/HCPCS: 36415; 85025

== ENCOUNTER → 2023-02-20 08:41 | Outpatient (CLI) | payer MEDICARE, SELFPAY ==
[2023-02-20 09:10] LABS: Basophils # 0.1 K/mm3 (0-0.2); Basophils % 1.9 % (0.1-2.0); Eosinophils # 0.1 K/mm3 (0.0-0.4); Eosinophils % 1.8 % (0.1-12.0); Hemoglobin 11.8 g/dL (12.2-16.2); Lymphocytes # 2.3 K/mm3 (0.7-4.5); Lymphocytes % 43.6 % (10-50); Mean Corpuscular Hemoglobin 35.4 pg (27.0-31.2); Mean Corpuscular Volume 110.6 fl (81-99); Mean Platelet Volume 10.6 fl (7.4-10.4); Monocytes # 0.3 K/mm3 (0.1-1.0); Monocytes % 6.2 % (1.7-9.3); Neutrophils # 2.4 K/mm3 (1.8-7.8); Neutrophils % 46.5 % (37.0-80.0); Platelet Count 631 K/mm3 (142-424); Red Blood Count 3.34 M/mm3 (4.20-5.40); White Blood Count 5.3 K/mm3 (4.8-10.8)
[2023-02-20 10:08] LABS: Chloride 104 mmol/L (98-107); Potassium 5.3 mmoL/L (3.5-5.1); Sodium 139 mmol/L (136-145)
[2023-02-20 10:11] LABS: Alanine Aminotransferase 34 U/L (12-78); Albumin Level 4.1 g/dl (3.5-5.0); Albumin/Globulin Ratio 1.3 (1.1-1.8); Alkaline Phosphatase 87 U/L (38-126); Anion Gap 9.3 mEq/L (5-15); Aspartate Amino Transferase 39 U/L (14-36); Bilirubin,Total 0.5 mg/dl (0.2-1.3); Blood Urea Nitrogen 13 mg/dl (7-17); Calcium 9.8 mg/dl (8.4-10.2); Carbon Dioxide 31 mmol/L (22.0-30.0); Estimated Glomerular Filt Rate 70 ml/min (>60); GFR (African American) 84 ML/MIN (>60); Globulin 3.1 g/dL (1.3-3.2); Glucose 102 mg/dl (74-100); Iron 116 ug/dL (37-170); Total Protein,Serum 7.2 g/dl (6.3-8.2)
[2023-02-20 10:20] LABS: Total Iron Binding Capacity 313 ug/dL (265-497)
[2023-02-20 10:47] LABS: Ferritin 188 ng/ml (11.1-264)
== END ==
LOC: LAB 08:43
PROVIDERS: PCP Family Medicine; Referring Provider Internal Medicine Medical Oncology; Visit Provider Internal Medicine Medical Oncology
DX: D75.838 Other thrombocytosis (principal); R71.8 Other abnormality of red blood cells; R74.01 Elevation of levels of liver transaminase levels
CPT/HCPCS: 36415; 80053; 82728; 83540; 83550; 85025

== ENCOUNTER → 2023-02-22 11:22 | Outpatient (CLI) | payer MEDICARE, SELFPAY | PROVIDERS: PCP Family Medicine; Visit Provider Internal Medicine Medical Oncology | DX: D75.839 Thrombocytosis, unspecified (principal) | CPT/HCPCS: 36415 ==

== ENCOUNTER 2023-08-20 07:43 | Outpatient (CLI) | payer MEDICARE, SELFPAY ==
[2023-08-20 08:26] LABS: Basophils # 0.1 K/mm3 (0-0.2); Basophils % 2.9 % (0.1-2.0); Eosinophils # 0.1 K/mm3 (0.0-0.4); Eosinophils % 2.5 % (0.1-12.0); Hematocrit 35.7 % (37.0-47.0); Hemoglobin 11.1 g/dL (12.2-16.2); Lymphocytes % 38.7 % (10-50); Mean Corpuscular Hemoglobin 34.8 pg (27.0-31.2); Mean Corpuscular Volume 112.3 fl (81-99); Mean Platelet Volume 10.9 fl (7.4-10.4); Monocytes # 0.4 K/mm3 (0.1-1.0); Monocytes % 7.1 % (1.7-9.3); Neutrophils # 2.5 K/mm3 (1.8-7.8); Neutrophils % 48.8 % (37.0-80.0); Platelet Count 562 K/mm3 (142-424); Red Blood Count 3.18 M/mm3 (4.20-5.40); Red Cell Distribution Width 20.9 % (11.5-17.5); White Blood Count 5.1 K/mm3 (4.8-10.8)
[2023-08-20 09:08] LABS: Alanine Aminotransferase 20 U/L (12-78); Albumin Level 3.7 g/dl (3.5-5.0); Albumin/Globulin Ratio 1.1 (1.1-1.8); Alkaline Phosphatase 73 U/L (38-126); Anion Gap 11.4 mEq/L (5-15); Aspartate Amino Transferase 29 U/L (14-36); Bilirubin,Total 0.5 mg/dl (0.2-1.3); Blood Urea Nitrogen 21 mg/dl (7-17); Calcium 10.2 mg/dl (8.4-10.2); Carbon Dioxide 29 mmol/L (22.0-30.0); Chloride 104 mmol/L (98-107); Estimated Glomerular Filt Rate 69 ml/min (>60); GFR (African American) 84 ML/MIN (>60); Globulin 3.3 g/dL (1.3-3.2); Glucose 101 mg/dl (74-100); Potassium 4.4 mmoL/L (3.5-5.1); Sodium 140 mmol/L (136-145)
[2023-08-31 10:50] LABS: Miscellaneous Test SCANNED IMAGE
== END 2023-08-20 23:59 | disposition home or self-care (01) ==
LOC: LAB 07:45
PROVIDERS: PCP Family Medicine; Visit Provider Internal Medicine Medical Oncology
DX: D75.839 Thrombocytosis, unspecified (principal); Z79.64 Long term (current) use of myelosuppressive agent
CPT/HCPCS: 36415; 80053; 85025

== ENCOUNTER 2023-09-24 08:56 | Outpatient (CLI) | payer MEDICARE, SELFPAY ==
--- NOTE | 2023-09-24 09:33 | XR_ITS ---
FINAL REPORT TECHNIQUE: Bone densitometry calculations of the lumbar spine and left hip were obtained. CLINICAL HISTORY: SSCREENING COMPARISON: 08/29/2021 FINDINGS: Using L1-4, the bone mineral density of the spine is 1.192 g/cm2, corresponding to T-score of 1.3 and a Z score of 3.9. This is within the range of normal. Using the left hip, the bone mineral density of the femoral neck is 0.674 g/cm2, corresponding to a T-score of -1.6 and a Z-score of 0.6. This is within the range of osteopenia. NOTE: T-score: Standard deviation compared with peak bone mass of young adult mean. *Following the recommendations of the International Society of Bone densitometry, classification of hip BMD is based on the lower of two T-scores; total hip or femoral neck. IMPRESSION: 1. Bone mineral density of the lumbar spine within the range of normal. 2. Bone mineral density of the left femoral neck within the range of osteopenia. Reviewed, Interpreted and Dictated by Cele Huerta MD Transcribed by Brittany Leon Authenticated and [facility]
== END 2023-09-24 23:59 | disposition home or self-care (01) ==
LOC: RAD 08:56
PROVIDERS: PCP Family Medicine; Visit Provider Family Medicine
DX: M85.88 Other specified disorders of bone density and structure, other site (principal)
CPT/HCPCS: 77080

== ENCOUNTER 2024-02-18 07:45 | Outpatient (CLI) | payer MEDICARE, SELFPAY ==
[2024-02-18 08:19] LABS: Basophils # 0.2 K/mm3 (0-0.2); Basophils % 2.6 % (0.1-2.0); Eosinophils # 0.2 K/mm3 (0.0-0.4); Eosinophils % 2.5 % (0.1-12.0); Hematocrit 35.9 % (37.0-47.0); Hemoglobin 11.4 g/dL (12.2-16.2); Lymphocytes # 2.8 K/mm3 (0.7-4.5); Lymphocytes % 46.4 % (10-50); Mean Corpuscular HGB Conc 31.8 g/dL (31.8-35.4); Mean Corpuscular Volume 110.1 fl (81-99); Monocytes # 0.4 K/mm3 (0.1-1.0); Monocytes % 6.1 % (1.7-9.3); Neutrophils # 2.6 K/mm3 (1.8-7.8); Neutrophils % 42.2 % (37.0-80.0); Platelet Count 604 K/mm3 (142-424); Red Blood Count 3.26 M/mm3 (4.20-5.40); Red Cell Distribution Width 20.8 % (11.5-17.5); White Blood Count 6.1 K/mm3 (4.8-10.8)
[2024-02-18 08:48] LABS: Albumin Level 3.9 g/dl (3.5-5.0); Chloride 109 mmol/L (98-107); Potassium 5.1 mmoL/L (3.5-5.1); Sodium 141 mmol/L (136-145)
[2024-02-18 08:51] LABS: Alanine Aminotransferase 21 U/L (12-78); Albumin/Globulin Ratio 1.4 (1.1-1.8); Alkaline Phosphatase 79 U/L (38-126); Anion Gap 9.1 mEq/L (5-15); Aspartate Amino Transferase 31 U/L (14-36); Bilirubin,Total 0.5 mg/dl (0.2-1.3); Blood Urea Nitrogen 17 mg/dl (7-17); Calcium 9.5 mg/dl (8.4-10.2); Carbon Dioxide 28 mmol/L (22.0-30.0); Estimated Glomerular Filt Rate 61 ml/min (>60); GFR (African American) 73 ML/MIN (>60); Globulin 2.8 g/dL (1.3-3.2); Glucose 95 mg/dl (74-100); Total Protein,Serum 6.7 g/dl (6.3-8.2)
== END 2024-02-18 23:59 | disposition home or self-care (01) ==
LOC: LAB 07:46
PROVIDERS: PCP Family Medicine; Visit Provider Internal Medicine Medical Oncology
DX: I10 Essential (primary) hypertension (principal)
CPT/HCPCS: 36415; 80053; 85025

== ENCOUNTER 2024-08-19 07:24 | Outpatient (CLI) | payer MEDICARE, SELFPAY ==
--- OUTSIDE RECORDS SUMMARY | 2023-02-22 05:00 | XMS_ITS ---
Author Organization [facility] Address [address] [facility] [address] [place] [id number] Care Team Providers Care Operations Professional Name Role Phone Mandi Davis Primary Care Provider Allergies No Known Allergies Results Component Value Reference Range Notes P-Lipid Panel Reviewed date:02/26/2023 10:19:08 PM Interpretation: Performing Lab: Notes/Report: Test performed by [facility] [address] [place] [address] , [address], [place] [address] Ho Lal MD, [employer] CLIA: [id number] Cholesterol 154 <200 mg/dL Triglycerides 64 <150 mg/dL HDL Cholesterol 61 >39 mg/dL Cholesterol / HDL Ratio 2.52 0.00-4.44 Ratio Non-HDL Cholesterol 93 <130 mg/dL LDL Cholesterol (Calculation) 80 <130 mg/dL LDL Cholesterol Levels* Less than 100 mg/dL Optimal 100 to 129 mg/dL Near Optimal/ Above Optimal 130 to 159 mg/dL Borderline High 160 to 189 mg/dL High 190 mg/dL and above Very High * Categories as recommended by the 2004 ATPIII guidelines LDL/HDL Ratio 1.3 <3.3 Ratio LDL Cholesterol Patient History Test Date: 08/23/2021 LDL Results: 68 Units: mg/dL % Change: - Test Date: 08/24/2022 LDL Results: 73 Units: mg/dL % Change: +7% Test Date: 02/22/2023 LDL Results: 80 Units: mg/dL % Change: +9% P-TSH Reviewed date:02/26/2023 10:19:08 PM Interpretation: Performing Lab: Notes/Report: Test performed by [facility], [address] , [address], [place] [address] Ho Lal MD, Outsole [employer] CLIA: [id number] TSH 1.52 0.43-5.25 mU/L REASON FOR VISIT 6 month check and [employer] Annual Wellness Visit Medications Medication SIG (Take, Route, Frequency, Duration) Notes Start Date End Date Status Melatonin 5 MG 1/2 cap orally once a day (at bedtime) Not-Taking Simvastatin 20 MG 1 tab(s) orally once a day (at bedtime) Active Calcium-Vitamin D-Minerals 600-800 MG-UNIT 1 tab(s) orally 2 times a day Active Aspirin 325 MG 1 tab(s) orally once a day Active Lisinopril-hydroCHLOROthi azide 10-12.5 MG 1 tab(s) orally once a day Active Hydroxyurea 500 MG as directed orally o nce a day Active Multiple Vitamin - 1 cap(s) orally once a day Active Aspirin 81 MG 1 tab(s) orally once a day for 30 day(s) Active Immunizations Vaccine Route Administration Date Status Comme nts Prevnar (PCV20) IM Intramuscular 02/22/2023 Administered Problems Problem Type SNOMED Code ICD Code Onset Dates Problem Status W/U Status Risk Notes Problem [id number] BMI 33.0-33.9,ad ult (Z68.33) Active confirmed Vital Signs Weight 190 lbs 02/22/2023 Blood pressure systolic 126 mm Hg 02/23/20 23 Blood pressure diastolic 70 mm Hg 023 Heart Rate 65 /min 02/22/2023 Height 63 in 02/22/2023 BMI 33.65 kg/m2 02/22/2023 Encounters [facility]counter [facility] Date [facility] [address] [id number] 02/22/2023 Mandi Davis Adult general medica l examination Z00.00 ; Essential hypertension I10 ; Dyslipidemia E78.5 ; Osteopenia, unspecified location M85.80 ; Essential thrombocytosis D47.3 ; Multinodular goiter E04.2 ; Asymptomatic bilateral carotid artery stenosis I65.23 ; Macrocytic anemia D53.9 ; Encounter for immunization Z23 and BMI 33.0-33.9,adult Z68.33 Assessments Encounter Date Diagnosis (ICD Code) Assessment Notes Treatment Notes Treatment Clinical Notes Section Notes 02/22/2023 Adult general medical examination (ICD-10 - Z00.00) Patient instructed to return to office Annually for Annual Wellness Visits to include annual screenings of Pain assessment, Functional Ability assessment, Cognitive Ability assessment, Fall Risk assessment, Depression screening and Bladder control screening. 02/22/2023 Essential hypertension (ICD-10 - I10) 02/22/2023 Dyslipidemia (ICD-10 - E78.5) 02/22/2023 Osteopenia, unspecified location (ICD-10 - M85.80) 02/22/2023 Essential thrombocytosis (ICD-10 - D47.3) Continue follow-up with Dr. Blunt 02/22/2023 Multinodular goiter (ICD-10 - E04.2) 02/22/2023 Asymptomatic bilateral carotid artery stenosis (ICD-10 - I65.23) 02/22/2023 Macrocytic anemia (ICD-10 - D53.9) 02/22/2023 Encounter for immunization (ICD-10 - Z23) 02/22/2023 BMI 33.0-33.9,adult (ICD-10 - Z68.33) Plan Of Treatment Medication Medication Name Sig Start Date Stop Date Notes Simvastatin 20 MG 1 tab(s) orally once a day (at bedtime) Calcium-Vitamin D-Minerals 600-800 MG-UNIT 1 tab(s) orally 2 times a day Aspirin 325 MG 1 tab(s) orally once a day Lisinopril-hydroCHLOROthiazi de 10-12.5 MG 1 tab(s) orally once a day Hydroxyurea 500 MG as directed orally o nce a day Treatment Notes Assessment Notes Adult general medical examination Patien t instructed to return to office Annually for Annual Wellness Visits to include annual screenings of Pain assessment, Functional Ability assessment, Cognitive Ability assessment, Fall Risk assessment, Depression screening and Bladder control screening. Essential thrombocytosis Continue follow -up with Dr. Blunt Next Appt Details Follow Up: 6 Months, Reason: Provider Name:Mandi Owens, 08/26/2024 09:00:00 AM, [address] [facility] [address], [place], [id number], Progress Notes * SEBASTIÁN AUGUSTDOB:1945 (79 yo F)Acc No.[id number]:02/22/2023 Annual Wellness Visit Patient: Warren HARTMANAugust Provider: Mandi Davis M.D. :1945 A ge:77 Y S ex:Female Date:02/22/2023 Address:[address] [place] [address] [id number] Subjective: * Chief Complaints: * 1 . 6 month check and [employer] Annual Wellness Visit. * HPI: H PI: Patient is here today for a scheduled check up, a [employer] Annual Wellness Visit with PAF form completion. See PAF form scanned to chart. Pt is fasting today. Pt sts that she has no new concerns or complaints today. Pt needs refills. Pt sts that she had a colonoscopy done in 08/2020 and is not due until 2025. Pt sts that she had her colonoscopy performed in [place], pt cannot recall the doctors name who performed the colonoscopy. C ardiology: c/o BloodPressure at Home c onsistently normal. Denies : Chest Pain. D enies : Short of Breath. D enies : Dizziness. D enies : Palpitations. Leg Edema b ilateral, goes down over night, ongoing for pt.? H ematology: She continues to follow with Dr. Blunt for her essential thrombocytosis. * ROS: D ERMATOLOGY: no R shereen. n o H hector. G ASTROENTEROLOGY: no N ausea. n o V omiting. n o D iarrhea.? U ROLOGY: no D ifficulty urinating. n o B lood in urine. * Medical History: H [place], HLP, Angiodysplasia of colon, Cysts on liver, H. Pylori, Spastic colon, Cyst on left kidney, Arthritis, Hyperextension of left knee, Loss of high pitch sounds, Pneumonia, Thrombocytosis - follows with Dr. Blunt, Multinodular goiter - Dr. Rojas, Mild carotid stenosis, bilateral. * Surgical History: l eft breast wedge resection 1983, wisdom teeth removed 1971, sub-total thyroidectomy for goiter 1974, cholecystectomy 1997, foreign body removed from left ear 2016, cataract surgery both eyes 2015, Laminectomy L4 L5 1983, C-scope 07/2020. * Family History: F ather: 42 yrs, CHF. M other: 81 yrs, colon cancer, ovarian and bone cancer. 1 brother(s) , 1 sister(s) . 2 son(s) . . Pt maternal aunt-breast cancer gallbladder cancer\nmaternal cousins-brain cancer, tongue and throat cancer. * Social History: C URRENT TOBACCO USE: No . C affeine: yes, frequency: daily. Home smoke detector use: yes. Marital Status: . Occupation: Retired nurse. Alcohol: No. * Medications: T aking Calcium-Vitamin D-Minerals 600-800 MG-UNIT Tablet Chewable 1 tab(s) orally 2 times a day , Taking Simvastatin 20 MG Tablet 1 tab(s) orally once a day (at bedtime) , Taking Lisinopril-hydroCHLOROthiazide 10-12.5 MG Tablet 1 tab(s) orally once a day , Taking Aspirin 325 MG Tablet 1 tab(s) orally once a day , Taking Hydroxyurea 500 MG Capsule as directed orally once a day , Taking Aspirin 81 MG Tablet Delayed Release 1 tab(s) orally once a day , Taking Multiple Vitamin - Capsule 1 cap(s) orally once a day , Not-Taking Melatonin 5 MG Capsule 1/2 cap orally once a day (at bedtime) , Medication List reviewed and reconciled with the patient * Allergies: N .K.D.A. Objective: * Vitals: W t:190, Temp:98.0, BP:126/70, HR:65, O2 Sat:97% on RA, Nurse:NANCY, Ht: 63, BMI:33.65. * Examination: G eneral Examination: General Appearance: N AD. HEENT: sclera and conjunctiva clear, PERRLA, TM's normal, translucent. Oral cavity: n o lesions, mucosa moist and WNL, no erythema. Neck: s upple, no lymphadenopathy, no carotid bruits. Chest: n ormal shape and expansion. Heart: R SR. Lungs: c lear to auscultation. Extremities: n o leg edema. * Physical Examination: G ENERAL: Pain Assessment: P ain level: 0, on a scale of 0-10 (with 10 being extreme pain). F unctional Status Assessment: P atient response to question of how often physical health interferes with daily activities: . Ocasionally Able to perform ADLs-including meal preparation, grocery shopping, housework, laundry, taking medications or handling finances. Cognitive Status: alert and oriented. Ambulation Status: Fully ambulatory . F all Risk Assessment: I ndependant in ambulation, adequate lighting in home. Patient has NOT fallen or had trouble walking within the past 12 months. D epression Screening: D enies depressed mood or anxiety. Describes emotional health as: calm. B ladder Control Screening: D enies problems. Assessment: * Assessment: 1. A dult general medical examination - Z00.00 (Primary) 2 . E ssential hypertension - I10 3 . D yslipidemia - E78.5 4 . O steopenia, unspecified location - M85.80 5 . E ssential thrombocytosis - D47.3 6. M ultinodular goiter - E04.2 7 . A symptomatic bilateral carotid artery stenosis - I65.23 8 . M acrocytic anemia - D53.9 9 . E ncounter for immunization - Z23 1 0. B DE 33.0-33.9,adult - Z68.33 ? Plan: * Treatment: 2. E ssential hypertension Refill Lisinopril-hydroCHLOROthiazide Tablet, 10-12.5 MG, 1 tab(s), orally, once a day, 90, Refills 1. 3. D yslipidemia Refill Simvastatin Tablet, 20 MG, 1 tab(s), orally, once a day (at bedtime), 90, Refills 1. ? L AB: P-Lipid Panel (Collection Date & Time - 02/22/2023 08:25 AM) Value Reference Range C holesterol / HDL Ratio 2.52 0.00-4.44 - Ratio * C holesterol 154 <200 - mg/dL * H DL Cholesterol 61 >39 - mg/dL * L DL Cholesterol (Calculation) 80 <130 - mg/d L * L DL/HDL Ratio 1.3 <3.3 - Ratio * N on-HDL Cholesterol 93 <130 - mg/dL * T riglycerides 64 <150 - mg/dL * Mandi Davis 02/26/2023 10:18:58 PM >See phone encounter 4.?Osteopenia, unspecified location? Continue Calcium-Vitamin D-Minerals Tablet Chewable, 600-800 MG-UNIT, 1 tab(s), orally, 2 times a day.??5.?Essential thrombocytosis? Continue Aspirin Tablet, 325 MG, 1 tab(s), orally, once a day;?Continue Hydroxyurea Capsule, 500 MG, as directed, orally, once a day.?? Notes: Continue follow-up with Dr. Blunt??6.?Multinodular goiter?LAB: P-TSH (Collection Date & Time - 02/22/2023 08:25 AM)* Value Reference Range T SH 1.52 0.43-5.25 - mU/L * Mandi Davis 02/26/2023 10:18:58 PM >See phone encounter * Immunizations: Prevnar (PCV20) : 0.5 mL (Route: Intramuscular) given by Arielle Martin on Right Deltoid (Encounter for immunization) * Procedure Codes: G 0439 ANNUAL WELLNESS VST; PPS SUBSQT VST, 00503 PT-FOCUSED HLTH RISK ASSMT, G0444 ANNUAL DEPRESSION SCREENING 15 MIN, 1090F PRES/ABSN URINE INCON ASSESS, 3288F FALL RISK ASSESSMENT DOCD, 1170F FXNL STATUS ASSESSED, 1126F AMNT PAIN NOTED NONE PRSNT, 1159F MED LIST DOCD IN RCRD, 1003F LEVEL OF ACTIVITY ASSESS, 1036F TOBACCO NON- USER, G8510 NEG SCR Depression PT NOT ELIG F/U/PLN DOC, 3048F LDL-C <100 MG/DL, 4040F PNEUMOC IMM ORDER/ADMIN, 3074F SYST BP LT 130 MM HG, 3078F DIAST BP < 80 MM HG * Preventive Medicine: Counseling: E motional health: D iscussed ways to improve socialization. B ladder control: M ethods of controlling or managing leakage of urine discussed. E xercise: Patient advised to start, increase or maintain level of exercise/physical activity. I njury prevention: F all prevention discussed. Discussed need for cane/walker. Potential trip hazards discussed. Immunizations: P neumococcal r ecommended. I nfluenza r ecommended seasonally. C OVID-19 u p to date. Screening / Special Tests: M ammogram R ecent history:10/06/2022, negative. C olonoscopy R ecent history:per patient 07/30, no records with [facility]. B one mineral Density Recent history:08/29/2021, osteopenia. D iabetic Retinal Eye Exam R ecent history:02/15/2023. L frida cancer screening n /a. * Follow Up: 6 Months * Billing Information: * Visit Code: 29152 Office Visit, Est Pt., Level 3. Modifiers: 25 * Procedure Codes: G0439 ANNUAL WELLNESS VST; PPS SUBSQT VST. 69228 PT-FOCUSED HLTH RISK ASSMT. G0444 ANNUAL DEPRESSION SCREENING 15 MIN. 1090F PRES/ABSN URINE INCON ASSESS. 3288F FALL RISK ASSESSMENT DOCD. 1170F FXNL STATUS ASSESSED. 1126F AMNT PAIN NOTED NONE PRSNT. 1159F MED LIST DOCD IN RCRD. 1003F LEVEL OF ACTIVITY ASSESS. 1036F TOBACCO NON-USER. G8510 NEG SCR Depression PT NOT ELIG F/U/PLN DOC. 3048F LDL-C <100 MG/DL. 4040F PNEUMOC IMM ORDER/ADMIN. 3074F SYST BP LT 130 MM HG. 3078F DIAST BP < 80 MM HG. * Electronic signature of Mandi Davis MD on 08/19/2024 at 07:27 AM EDT Sign off status: Pending * Provider: Mandi Davis M.D. Date: 1 04/25/2022 Generated for Pranav barrios/Kale/eTransmitting on: 0 08/19/2024 07:27 AM EDT History and Physical Notes * HPI (History of Present Illness) Category Sub-Category Detail Notes Category Not es Cardiology Short of Breath Chest Pain Palpitations Dizziness Leg Edema bilateral, goes down over night, ongoing for pt BloodPressure at Home consistently alejandra l HPI Patient is here today for a replaced by [facility] ansoned check up, a [employer] Annual Wellness Visit with PAF form completion. See PAF form scanned to chart. Pt is fasting today. Pt sts that she has no new concerns or complaints today. Pt needs refills. Pt sts that she had a colonoscopy done in 08/2020 and is not due until 2025. Pt sts that she had her colonoscopy performed in [place], pt cannot recall the doctors name who performed the colonoscopy Physical Examination Category Sub-Category Detail Notes Section Note s GENERAL Pain Assessment: Pain level: 0, on a scale of 0-10 (with 10 being extreme pain) Functional Status Assessment: Patient response to question of how often physical health interferes with daily activities: . Ocasionally Able to perform ADLs-including meal preparation, grocery shopping, housework, laundry, taking medications or handling finances. Cognitive Status: alert and oriented. Ambulation Status: Fully ambulatory Fall Risk Assessment: Independant in amb ulation, adequate lighting in home. Patient has NOT fallen or had trouble walking within the past 12 months Depression Screening: Denies depressed m ood or anxiety. Describes emotional health as: calm Bladder Control Screening: Denies proble ms Examination Category Sub-Category Detail Notes Category Not es General Examination HEENT: sclera and c onjunctiva clear, PERRLA, TM's normal, translucent Heart: RSR Lungs: clear to auscultatio n Extremities: no leg edema General Appearance: NAD Neck: supple, no lymphaden opathy, no carotid bruits Oral cavity: no lesions, mucosa m oist and WNL, no erythema Chest: normal shape and exp ansion
--- OUTSIDE RECORDS SUMMARY | 2023-08-28 05:15 | XMS_ITS ---
Author Organization [facility] Address [address] [facility] 36 [facility] [address] [place] [id number] Care Team Providers Care Armament Aircraft Mechanic Name Role Phone Mandi Davis Primary Care Provider Allergies No Known Allergies Results Component Value Reference Range Notes P-Comprehensive Metabolic Pa claribel (CMP) Reviewed date:08/30/2023 08:40:28 AM Interpretation:gluc 100, Ca 10.5 Performing Lab: Notes/Report: Test performed by [facility] [address] [place] [address] , [address], [place] [address] Ho Lal MD, Hand Mexican Food Maker CLIA: [id number] Sodium 141 135-145 mEq/L Potassium 5.2 3.5-5.3 [...] Interpretation:Normal Performing Lab: Notes/Report: Test performed by [facility] [address] [place] [address] , [place] [address] Ho Lal MD, Hand Mexican Food Maker [facility]: [id number] Cholesterol 140 <200 mg/dL Triglycerides 66 <150 [...] Interpretation:Normal Performing Lab: Notes/Report: Test performed by [facility] [address] [place] [address] , [address], [place] [address] Ho Lal MD, Hand Mexican Food Maker CLIA: [id number] TSH 1.01 0.43-5.25 mU/L Bone density Reviewed [...] once a day for 30 day(s) Active Magnesium 250 MG 1 tablet with a meal Orally Once a day for 30 day(s) Active Iron 325 (65 Fe) MG 1 tablet Orally Thre e times a Week for 30 day(s) Active Aspirin 325 MG 1 [...] azide 10-12.5 MG TAKE 1 TABLET EVERY DAY for 90 Active Simvastatin 20 MG 1 tab(s) orally once a day (at bedtime) Active Vital Signs Blood pressure systolic 118 mm Hg 08/28/19 24 Blood pressure diastolic 70 mm Hg 06/18/2 024 Heart Rate 76 /min 08/28/2023 Height 63 in 08/28/2023 Weight 187 lbs 08/28/2023 BMI 33.12 kg/m2 08/28/2023 Encounters Encounter Location Date Provider Diagnosis [facility] [address] [facility] [address] [facility] [address] [place] [id number] 08/28/2023 Mandi Davis Essential hypertensi on I10 [...] Name:Mandi Owens, 08/26/2024 09:00:00 AM, [address], [place], [phone], Progress Notes * MARIAJOSE LOWERY:1945 (79 yo F)Acc No.[id number]:08/28/2023 Progress Notes Patient: Warren HARTMAN, AUGUST Provider: Mandi Davis M.D. :1945 A ge:78 Y S ex:Female Date:08/28/2023 Address:[address] [place] [address] , [place], [id number] Subjective: * Chief Complaints: * 1 . [...] to auscultation. Extremities: n o leg edema. Assessment: * Assessment: [...] Linda Tejada 08/28/2023 9:18: 24 AM > [facility] 09/24/2023 at 09:15am; pt informed; order faxedMandi Davis 10/07/2023 10:07:13 PM > See phone encounter [...] by Creatinine 61 >59 - mL/min/1.73m2 * [facility], IT support 08/29/2023 06:35:05 : This order was created by the Nela. Mandi Davis 08/30/2023 8:40:19 AM >See phone encounter * Follow Up: 6 Months * Billing Information: * Visit Code: 04402 Office Visit, Est Pt., Level 3. * Procedure Codes: * Electronic signature of Mandi Davis MD on 08/19/2024 at 07:27 AM EDT Sign off status: Pending * Provider: Mandi Davis M.D. Date: 0 08/28/2023 Generated for Pranav barrios/Kale/eTransmitting on: 0 08/19/2024 [...]
--- OUTSIDE RECORDS SUMMARY | 2024-02-26 05:00 | XMS_ITS ---
Author Organization [facility] Address 1210 [facility] [address] [place] [phone] Care Team Providers Care Auto Camp Attendant Name Role Phone Mandi Davis Primary Care Provider Allergies No Known Allergies Results Component Value Reference Range Notes P-Lipid Panel Reviewed date:02/28/2024 08:32:02 AM Interpretation:Normal Performing Lab: Notes/Report: Test performed by [facility] [facility] [address] [place] [address] , [address], [place] [address] Ho Lal MD, Dairy Manufacturing Technologist CLIA: [id number] Cholesterol 132 <200 mg/dL Triglycerides 50 <150 [...] Interpretation:Normal Performing Lab: Notes/Report: Test performed by [facility], [address] , [facility], [place] [address] Ho Lal MD, Dairy Manufacturing Technologist CLIA: [id number] TSH 1.08 0.43-5.25 mU/L REASON FOR VISIT [...] times a Week for 30 day(s) Active Hydroxyurea 500 MG as [...] W/U Status Risk Notes Problem Macrocytic anemia (88579335) Macrocytic anemia (D53.9) Active confirmed Vital Signs Blood pressure systolic 128 mm Hg 02/26/20 24 Blood pressure diastolic 74 mm Hg 024 Heart Rate 82 /min 02/26/2024 Height 63 in 02/26/2024 Weight 190 lbs 02/26/2024 BMI 33.65 kg/m2 02/26/2024 Encounters Encounter [facility] [address] [phone] 02/26/2024 R Roge Davis Essential hypertensi on [...] 6 Months, Reason: Provider Name:Mandi Butt et, 08/26/2024 09:00:00 AM, [address], [place], [place], [phone], Progress Notes * SEBASTIÁN AUGUSTDOB:1945 (79 yo F)Acc No.[id number]:02/26/2024 Progress Notes Patient: Warren HARTMAN AUGUST Provider: Mandi Davis M.D. :1945 A ge:78 Y S ex:Female Date:02/26/2024 Address:[address] [place] [address] , [place], [id number] Subjective: * Chief Complaints: * 1 . [...] on * Follow Up: 6 Months * Billing Information: * Visit Code: 97014 Office Visit, Est Pt., Level 4. * Procedure Codes: G2211 Complex e/m visit add on. * Electronic signature of Mandi Davis MD on 08/19/2024 at 07:27 AM EDT Sign off status: Pending * Provider: Mandi Davis M.D. Date: 1 04/28/2023 Generated for Julio Cesari ng/Fakristinag/eTransmitting on: 0 08/19/2024 07:27 AM EDT History and Physical Notes * HPI (History of Present Illness) Category Sub-Category Detail Notes Category Not es [facility]ocrinology [facility] Pt [...]
--- OUTSIDE RECORDS SUMMARY | 2024-08-19 07:27 | XMS_ITS | Patient Health Record ---
Author Organization [facility] Address 1210 [facility] 36 [facility] [address] [place] [phone] Care Team Providers Care Fifth Hand Name Role Phone Mandi Davis Primary Care Provider Allergies No Known Allergies Results Component Value Reference Range Notes P-Comprehensive Metabolic Pa claribel (CMP) Reviewed date:08/30/2023 08:40:28 AM Interpretation:gluc 100, Ca 10.5 Performing Lab: Notes/Report: Test performed by [facility] [address] [place] [address] , [address], [place] [address] Ho Lal MD, Shot Core Drill Operator CLIA: [id number] Sodium 141 135-145 mEq/L Potassium 5.2 3.5-5.3 [...] Interpretation:Normal Performing Lab: Notes/Report: Test performed by [facility] [address] [place] [address] , [place] [address] Ho Lal MD, Shot Core Drill Operator ZACK: [id number] Cholesterol 140 <200 mg/dL Triglycerides 66 <150 [...] ATPIII guidelines LDL/HDL Ratio 1.3 <3.3 Ratio ____ LDL Cholesterol Patient History ____ Test Date: 08/24/2022 LDL Results: 73 Units: mg/dL % Change: +7% ---- Test Date: 02/22/2023 LDL Results: 80 Units: mg/dL % Change: +9% ---- Test Date: 08/28/2023 LDL Results: 73 Units: mg/dL % Change: -8% ____ P-TSH Reviewed date:08/30/2023 08:40:28 AM Interpretation:Normal Performing Lab: Notes/Report: Test performed by [facility] [address] [place], [place] [address] [place] [address] Ho Lal MD, Shot Core Drill Operator CLIA: [id number] TSH 1.01 0.43-5.25 mU/L Bone density Reviewed date:10/07/2023 10:07:22 PM Interpretation:osteopenia left femoral neck Performing Lab: Notes/Report: osteopenia left femoral neck P-Lipid Panel Reviewed date:02/28/2024 08:32:02 AM Interpretation:Normal Performing Lab: Notes/Report: Test performed by [facility] [address] [place], [place] [address] [address], [place] [address] Ho Lal MD, Shot Core Drill Operator CLIA: [id number] Cholesterol 132 <200 mg/dL Triglycerides 50 <150 [...] ATPIII guidelines LDL/HDL Ratio 1.1 <3.3 Ratio ____ LDL Cholesterol Patient History ____ Test Date: 02/22/2023 LDL Results: 80 Units: mg/dL % Change: +9% ---- Test Date: 08/28/2023 LDL Results: 73 Units: mg/dL % Change: -8% ---- Test Date: 02/26/2024 LDL Results: 63 Units: mg/dL % Change: -13% ____ P-TSH Reviewed date:02/28/2024 08:32:02 AM Interpretation:Normal Performing Lab: Notes/Report: Test performed by [facility] [address] [place] [address] , [address], [place] [address] Ho Lal MD, Shot Core Drill Operator CLIA: [id number] TSH 1.08 0.43-5.25 mU/L Mammogram Reviewed date:10/12/2023 09:51:02 AM Interpretation:Negative, annual f/u Performing Lab: Notes/Report: Negative, annual f/u result Negative, annual f/u Reason For Referral No Information Medications Medication SIG (Take, Route, Frequency, Duration) Notes Start Date End Date Status Hydroxyurea 500 MG as directed orally o nce a day Active Multiple Vitamin - 1 cap(s) orally once a day Active Aspirin 325 MG 1 tab(s) orally once a day Active Aspirin 81 MG 1 tab(s) orally once a day for 30 day(s) Active Lisinopril-hydroCHLOROthi azide 10-12.5 MG TAKE 1 TABLET EVERY DAY for 90 Active Calcium-Vitamin D-Minerals 600-800 MG-UNIT 1 tab(s) orally 2 times a day Active Simvastatin 20 MG TAKE 1 TABLET AT BEDTIME for 90 Active Magnesium 250 MG 1 tablet with a meal Orally Once a day for 30 day(s) Active Iron 325 (65 Fe) MG 1 tablet Orally Thre e times a Week for 30 day(s) Active Fiber - as directed Orally A ctive Melatonin 5 MG 1/2 cap orally once a day (at bedtime) Not-Taking Immunizations Vaccine Route Administration Date Status Comme nts Zostavax Unknown 02/25/2014 Administered Shingrix Unknown 01/14/2021 Administered Shingrix Unknown 05/04/2021 Administered Prevnar (PCV20) IM Intramuscular 02/22/2023 Administered Prevnar (PCV13) Unknown 08/25/2014 Administered PNEUMOVAX 23 VACCINE Unknown 02/23/2015 Administered PNEUMOVAX 23 VACCINE IM Intramuscular 02/22/2021 Administe red Fluzone Quad-Medicare (6months&older) Unknown 12/15/2020 Administered Fluzone Quad (6months&older) Unknown 12/16/2019 Administered Fluzone High Dose (65yr and older) Unknown 12/13/2015 Administered Fluzone High Dose (65yr and older) Unknown 12/26/2016 Administered Fluzone High Dose (65yr and older) Unknown 12/18/2017 Administered Fluzone High Dose (65yr and older) Unknown 12/20/2018 Administered COVID 19 Moderna Unknown 04/07/2020 Administered COVID 19 Moderna Unknown 05/05/2020 Administered COVID 19 Moderna Unknown 11/17/2020 Administered COVID 19 Moderna Unknown 06/29/2021 Administered Problems Problem Type SNOMED Code ICD Code Onset Dates Problem Status W/U Status Risk Notes Problem 20733928 Essential hypertension (I10) Active confirmed Problem 224612458 BMI 32.0-32.9,adult (Z68.32) Active confirmed Problem 078741972 BMI 33.0-33.9,adult (Z68.33) Active confirmed Problem 070243175 Primary osteoarthritis involving multiple joints (M15.0) Active confirmed Problem Neuropathy (684617331) Neuropathy (G62.9) Active confirmed Problem 645586869 Multinodular goiter (E04.2) Active confirmed Problem Macrocytic anemia (13174714) Macrocytic anemia (D53.9) Active confirmed Problem 134028190 Dyslipidemia (E78.5) Active confirmed Problem 735193414 Osteopenia, unspecified location (M85.80) Active confirmed Problem 907922742 Essential thrombocytosis (D47.3) Active confirmed Problem 8704342456865866 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) Active confirmed Problem Asymptomatic bilateral carotid artery stenosis (I65.23) Active confirmed Vital Signs Heart Rate 82 /min 02/26/2024 Blood pressure diastolic 74 mm Hg 02/26/2024 Height 63 in 02/26/2024 Blood pressure systolic 128 mm Hg 02/26/2024 Weight 190 lbs 02/26/2024 BMI 33.65 kg/m2 02/26/2024 Encounters Encounter Location Date Provider Diagnosis [facility] [address] [facility] [address] [phone] 08/28/2023 R Roge Ryan Essential hypertensi on I10 ; Dyslipidemia E78.5 ; Osteopenia, unspecified location M85.80 ; Essential thrombocytosis D47.3 ; Multinodular goiter E04.2 ; Asymptomatic bilateral carotid artery stenosis I65.23 and Macrocytic anemia D53.9 [facility] [address] [place], [place] [phone] 02/26/2024 R Roge [place] Essential hypertensi on I10 ; Dyslipidemia E78.5 ; Osteopenia, unspecified location M85.80 ; Essential thrombocytosis D47.3 ; Multinodular goiter E04.2 ; Asymptomatic bilateral carotid artery stenosis I65.23 and Macrocytic anemia D53.9 [facility] [address] [facility] [address] [place] [phone] 08/30/2023 R Roge Ryan [facility] [address], [place] [phone] 10/07/2023 Mandi [place]ri[place]et [facility] [address] [place] [phone] 02/28/2024 Mandi [place] Assessments Encounter Date Diagnosis (ICD Code) Assessment Notes Treatment Notes Treatment Clinical Notes Section Notes 08/28/2023 Dyslipidemia (ICD-10 - E78.5) 08/28/2023 Essential hypertension (ICD-10 - I10) 02/26/2024 Essential hypertension (ICD-10 - I10) 02/26/2024 Dyslipidemia (ICD-10 - E78.5) 02/26/2024 Osteopenia, unspecified location (ICD-10 - M85.80) 08/28/2023 Osteopenia, unspecified location (ICD-10 - M85.80) 08/28/2023 Essential thrombocytosis (ICD-10 - D47.3) Continue follow-up with Dr. Abad 02/26/2024 Essential thrombocytosis (ICD-10 - D47.3) Continue follow-up with Dr. Abad 02/26/2024 Multinodular goiter (ICD-10 - E04.2) 08/28/2023 Multinodular goiter (ICD-10 - E04.2) 08/28/2023 Asymptomatic bilateral carotid artery stenosis (ICD-10 - I65.23) 02/26/2024 Asymptomatic bilateral carotid artery stenosis (ICD-10 - I65.23) 08/28/2023 Macrocytic anemia (ICD-10 - D53.9) 02/26/2024 Macrocytic anemia (ICD-10 - D53.9) Plan Of Treatment Next Appt Details Provider Name:Mandi Owens, 08/26/2024 09:00:00 AM, [address], [facility], [place], [phone], Insurance Providers Payer Name Payer Address Payer Phone Subscriber Number Group Number Insured Name Patient Relationship to Insured Coverage Start Date Coverage End Date [employer] (MEDICAR E) [address] [address] [place] [address] [phone] [id number] [id number] Self - patient is the insured Medications Administered Medication Instructions Date of Administration Dosage Notes Dexamethasone 08/22/2021 1 mL Pt tolerate d well Medical (General) History Medical History History ICD Code HTN HLP Angiodysplasia of colon cysts on liver H. Pylori spastic colon cyst on left kidney arthritis hyperextension of left knee loss of high pitch sounds Pneumonia Thrombocytosis - follows with Dr. Blunt Multinodular goiter - Dr. Rojas Mild carotid stenosis, bilateral Surgical History Surgery Date(Month/Year) left breast wedge resection 1983 wisdom teeth removed 1971 sub-total thyroidectomy for goiter 1974 cholecystectomy 1997 foreign body removed from left ear 2017 cataract surgery both eyes 2016 Laminectomy L4 L5 1983 C-scope 07/2020
--- OUTSIDE RECORDS SUMMARY | 2024-08-19 07:27 | XMS_ITS ---
Author Organization Unknown Medications Date Medication Dosage DosageUnit StartDate StopDate StopReason Active DoseQuantity DoseUnit Dispense DispenseUnit Refills NdcCode DrugCode PharmacyId IsPrescription MappedMedication Srcstatus 07/28 00:00 :00 Lisinopril- hydroCHLORO thiazide 10-12.5 MG Tablet 1 90 Tablet 1 [id number] 050 Start 07/28 00:00 :00 Lisinopril- hydroCHLORO thiazide 10-12.5 MG Tablet 0 90 1 [id number] 001 Stop 07/28 00:00 :00 Simvastatin 20 MG Tablet 1 90 Tablet 1 [id number] 903 Start 07/28 00:00 :00 Simvastatin 20 MG Tablet 0 90 1 [id number] 051 005 Stop
--- OUTSIDE RECORDS SUMMARY | 2024-08-19 07:27 | XMS_ITS | Clinical Summary ---
Author Organization [facility] Address [address] [place] [address] Care Team Providers Care Diet Attendant Name Role Phone Jacinto Davis MD Primary Care Provider [phone]- [phone] Family History Medical History Relation Name Comments Other cancer Cousin Heart failure Father Other cancer Father Thyroid disease Mother Relation Name Status Comments Cousin Father Mother Social History Tobacco Use Types Packs/Day Years Used Date Smoking Tobacco: Never Alcohol Use Standard Drinks/Week Comments No 0 (1 standard drink = 0.6 oz pur e alcohol) Comments Unknown Sex and Gender Information Value Date Recorded Sex Assigned at Female 11/01/2022 11:08 AM EDT Legal Sex Female 8:35 PM EDT Gender Identity Female 11/01/2022 11:08 AM EDT Sexual Orientation Not on file Last Filed Vital Signs Vital Sign Reading Time Taken Comments Blood Pressure - - Pulse - - Temperature - - Respiratory Rate - - Oxygen Saturation - - Inhaled Oxygen Concentration - - Weight 72.2 kg (159 lb 4.2 oz) 12/04/2013 12:20 PM EDT Height 161.3 cm (5' 3.5 ) 12/04/2013 12:20 PM ED T Body Mass Index 27.77 12/04/2013 12:20 PM EDT Plan of Treatment Upcoming Encounters Date Type Department Care Team (Late st Contact Info) Description 11/04/2024 9:30 AM EDT Ovarian Cancer Screening [facility] Gynecology [address] [facility], [address] [place] [address] Health Maintenance Due Date Last Done Comments [facility]-Bone Density Scan 1945 [facility]-Depression Screening 1945 [facility]-Hepatitis C Screening 1945 [facility]-Infant/Child/Adol SDOH Screenings 1945 [facility]- SDOH Screenings 08/14/1963 [facility]-Adult SDOH Screenings 08/14/1963 [facility]-DTaP,Tdap,and Td Vaccines (1 - Tdap) 1964 [id number] Vaccine ( season) 2023 01/10/2023, 01/11/2022, 06/29/2021, Additional history exists [facility]-Influenza Vaccine (Season Ended) 2024 12/11/2022, 12/14/2021, 12/15/2020, Additional history exists [facility]-Zoster Vaccines Completed 05/04/2021, [facility]-Pneumococcal Vaccine: 50+ Years Completed 02/22/2023, 02/22/2021 [facility]-RSV Vaccine: 60+ Years or Completed 02/22/2023 HPV Vaccines Aged Out No longer eligi ble based on patient's age to complete this topic [facility]-HIB Vaccines Aged Out No longer e ligible based on patient's age to complete this topic [facility]-Hepatitis A Vaccines Aged Out No longer eligible based on patient's age to complete this topic [facility]-IPV Vaccines Aged Out No longer e ligible based on patient's age to complete this topic [facility]-Rotavirus Vaccines Aged Out No lo nger eligible based on patient's age to complete this topic Care Teams Diet Attendant Relationship Specialty Start Date End Date Jacinto Davis MD [address] [place] [address] PCP - General 11/03/21
[2024-08-19 08:22] LABS: Basophils # 0.2 K/mm3 (0-0.2); Basophils % 2.4 % (0.1-2.0); Eosinophils # 0.2 Kmm3 (0.0-0.4); Eosinophils % 2.4 % (0.1-12.0); Hematocrit 34.5 % (37.0-47.0); Hemoglobin 10.7 g/dL (12.2-16.2); Immature Granulocytes # 0.16 10^3uL; Immature Granulocytes % 2.1 %; Lymphocytes # 3.1 K/mm3 (0.7-4.5); Lymphocytes % 41.4 % (10-50); Mean Corpuscular Volume 109.5 fl (81-99); Mean Platelet Volume 11.5 fl (7.4-10.4); Monocytes # 0.7 K/mm3 (0.1-1.0); Monocytes % 9.4 % (1.7-9.3); Neutrophils # 3.2 K/mm3 (1.8-7.8); Neutrophils % 42.3 % (37.0-80.0); Nucleated Red Blood Cells # 0.05 10^3/uL; Nucleated Red Blood Cells % 0.7 %; Platelet Count 537 K/mm3 (142-424); Red Blood Count 3.15 M/mm3 (4.20-5.40); Red Cell Distribution Width 20.5 % (11.5-17.5); Red Cell Distribution Width-SD 81.7 fL; White Blood Count 7.5 K/mm3 (4.8-10.8)
[2024-08-19 08:41] LABS: Albumin Level 4.1 g/dl (3.5-5.0); Chloride 107 mmol/L (98-107); Sodium 141 mmol/L (136-145)
[2024-08-19 08:44] LABS: Alanine Aminotransferase 21 U/L (12-78); Albumin/Globulin Ratio 1.4 (1.1-1.8); Alkaline Phosphatase 82 U/L (38-126); Aspartate Amino Transferase 30 U/L (14-36); Bilirubin,Total 0.4 mg/dl (0.2-1.3); Blood Urea Nitrogen 21 mg/dl (7-17); Carbon Dioxide 29 mmol/L (22.0-30.0); Estimated Glomerular Filt Rate 60 ml/min (>60); GFR (African American) 73 ML/MIN (>60); Total Protein,Serum 7.1 g/dl (6.3-8.2)
[2024-08-19 08:45] LABS: Calcium 9.4 mg/dl (8.4-10.2); Glucose 98 mg/dl (74-100)
== END 2024-08-19 23:59 | disposition home or self-care (01) ==
LOC: LAB 07:25
PROVIDERS: PCP Family Medicine; Visit Provider Internal Medicine Medical Oncology
DX: D69.6 Thrombocytopenia, unspecified (principal)
CPT/HCPCS: 36415; 80053; 85025

== ENCOUNTER 2024-09-29 13:12 | Outpatient (CLI) | payer MEDICARE, SELFPAY ==
--- OUTSIDE RECORDS SUMMARY | 2023-08-28 05:15 | XMS_ITS ---
Author Organization [facility] Address [address] [facility] 36 [facility] [address] [place] [id number] Care Team Providers Care Plumbing And Heating Mechanic Name Role Phone Mandi Davis Primary Care Provider [phone] Allergies No Known Allergies Results Component Value Reference Range Notes P-Comprehensive Metabolic Pa claribel (CMP) Reviewed date:08/30/2023 08:40:28 AM Interpretation:gluc 100, Ca 10.5 Performing Lab: Notes/Report: Test performed by [facility] [address] [place] [address] , [address], [place] [address] Ho Lal MD, Sap Bobj Developer CLIA: [id number] Sodium 141 135-145 mEq/L Potassium 5.2 3.5-5.3 [...] Interpretation:Normal Performing Lab: Notes/Report: Test performed by [facility] [address] [place] [address] , [place] [address] Ho Lal MD, Sap Bobj Developer [facility]: [id number] Cholesterol 140 <200 mg/dL Triglycerides 66 <150 [...] Interpretation:Normal Performing Lab: Notes/Report: Test performed by [facility] [address] [place] [address] , [address], [place] [address] Ho Lal MD, Sap Bobj Developer CLIA: [id number] TSH 1.01 0.43-5.25 mU/L Bone density Reviewed [...] a day (at bedtime) Active Vital Signs Weight 187 lbs 08/28/2023 Blood pressure systolic 118 mm Hg 08/28/19 24 Blood pressure diastolic 70 mm Hg 024 Heart Rate 76 /min 08/28/2023 Height 63 in 08/28/2023 BMI 33.12 kg/m2 08/28/2023 Encounters Encounter Location Date Provider Diagnosis [facility] [address] [facility] 36 [facility] [address] [place] [id number] 08/28/2023 Mandi Davis Essential hypertensi on I10 [...] Name:Mandi Owens, 02/26/2025 09:00:00 AM, [address] [facility] [address] [facility], [address], [place], [phone], Progress Notes * MARIAJOSE LOWERY:1945 (79 yo F)Acc No.[id number]:08/28/2023 Progress Notes Patient: Warren HARTMANAugust Provider: Mandi Davis M.D. :1945 A ge:78 Y S ex:Female Date:08/28/2023 Address:[address] [place] [address] , [place], [id number] Subjective: * Chief Complaints: * 1 . [...] Linda Tejada 08/28/2023 9:18: 24 AM > [facility] 09/24/2023 at 09:15am; pt informed; order Mandi [...] by Creatinine 61 >59 - mL/min/1.73m2 * [facility], IT support 08/29/2023 06:35:05 : This order was created by the Interface. Mandi Davis 08/30/2023 8:40:19 AM >See phone encounter * Follow Up: 6 Months * Images: Billing Information: * Visit Code: 37968 Office Visit, Est Pt., Level 3. * Procedure Codes: * Electronic signature of Mandi Davis MD on 09/29/2024 at 01:14 PM EDT Sign off status: Pending * Provider: Mandi Davis M.D. Date: 0 08/28/2023 Generated for Pranav barrios/Kale/eTransmitting on: 0 09/29/2024 01:14 PM EDT History and Physical Notes * HPI [...]
--- OUTSIDE RECORDS SUMMARY | 2024-02-26 05:00 | XMS_ITS ---
Author Organization [facility] Address 1210 [facility] [address] [place] [phone] Care Team Providers Care Non Emergency Services Ambulance Driver Name Role Phone Mandi Davis Primary Care Provider Allergies No Known Allergies Results Component Value Reference Range Notes P-Lipid Panel Reviewed date:02/28/2024 08:32:02 AM Interpretation:Normal Performing Lab: Notes/Report: Test performed by [facility] [address] [place] [address] , [address], [place] [address] Ho Lal MD, Programmer Developer CLIA: [id number] Cholesterol 132 <200 mg/dL Triglycerides 50 <150 [...] Interpretation:Normal Performing Lab: Notes/Report: Test performed by [facility], [address] , [facility], [place] [address] Ho Lal MD, Programmer Developer CLIA: [id number] TSH 1.08 0.43-5.25 mU/L REASON FOR VISIT [...] W/U Status Risk Notes Problem Macrocytic anemia (08745484) Macrocytic anemia (D53.9) Active confirmed Vital Signs Weight 190 lbs 02/26/2024 Blood pressure systolic 128 mm Hg 02/26/20 24 Blood pressure diastolic 74 mm Hg 024 Heart Rate 82 /min 02/26/2024 Height 63 in 02/26/2024 BMI 33.65 kg/m2 02/26/2024 Encounters Encounter Location Date [facility] [address], [place] [phone] 02/26/2024 R Roge Davis Essential hypertensi on [...] Butt et, 02/26/2025 09:00:00 AM, [address] [place] [facility] [address], [address], [place], [id number], Progress Notes * SEBASTIÁN AUGUSTDOB:1945 (79 yo F)Acc No.[id number]:02/26/2024 Progress Notes Patient: [place] HARTMANAugust Provider: Mandi Davis M.D. :1945 A ge:78 Y S ex:Female Date:02/26/2024 Address:[address] [place] [address] , [place], [id number] Subjective: * Chief Complaints: * 1 . [...] * Images: Billing Information: * Visit Code: 56017 Office Visit, Est Pt., Level 4. * Procedure Codes: G2211 Complex e/m visit add on. * Electronic signature of Mandi Davis MD on 09/29/2024 at 01:15 PM EDT Sign off status: Pending * Provider: Mandi Davis M.D. Date: 1 04/28/2023 Generated for Printi ng/Faxing/eTransmitting on: 0 09/29/2024 01:15 PM EDT History and Physical Notes * HPI (History of Present Illness) Category Sub-Category Detail Notes Category Not es [facility]ocrinology [facility] [...]
--- OUTSIDE RECORDS SUMMARY | 2024-08-26 05:00 | XMS_ITS ---
Author Organization [facility] Address [address] [facility] [address] [facility] [address] [place] [id number] Care Team Providers Care Manager Water Name Role Phone Mandi Davis Primary Care Provider Allergies No Known Allergies Results Component Value Reference Range Notes P-Comprehensive Metabolic Pa claribel (CMP) Reviewed date:08/28/2024 08:51:05 AM Interpretation:normal Performing Lab: Notes/Report: Test performed by [facility] [employer] [address] [place], [place] [address] [place] , [address], [place] [address] Ho Lal MD, Principal Mechanical Engineer CLIA: [id number] Sodium 140 135-145 mmol/L Potassium 4.6 3.5-5.3 [...] 75 Performing Lab: Notes/Report: Test performed by [facility] [address] [place], [place] [address] [place] , [address], [place] [address] Ho Lal MD, Principal Mechanical Engineer CLIA: [id number] Cholesterol 145 <200 mg/dL Triglycerides 86 <150 [...] Interpretation:2.2 Performing Lab: Notes/Report: Test performed by [facility] [address] [place] [address] , [address], [place] [address] Ho Lal MD, Principal Mechanical Engineer CLIA: [id number] Magnesium 2.2 1.6-2.4 mg/dL P-TSH Reviewed date:08/28/2024 08:51:05 AM Interpretation:1.3 Performing Lab: Notes/Report: Test performed by [facility] [address] [place] [address] , [address], [place] [address] Ho Lal MD, Principal Mechanical Engineer CLIA: [id number] TSH 1.30 0.43-5.25 mU/L REASON FOR VISIT [...] orally once a day Active Vital Signs Weight 190.2 lbs 08/26/2024 Blood pressure systolic 130 mm Hg 08/27/19 25 Blood pressure diastolic 76 mm Hg 025 Heart Rate 60 /min 08/26/2024 Height 63 in 08/26/2024 BMI 33.69 kg/m2 08/26/2024 Encounters Encounter Location Date Provider Diagnosis [facility] [address] [place], [place] [id number] 08/26/2024 R Roge Davis Essential hypertensi on [address], [place], [id number], Progress Notes * SEBASTIÁN AUGUSTDOB:1945 (79 yo F)Acc No.[id number]:08/26/2024 Progress Notes Patient: [place] HARTMANAugust Provider: Mandi Davis M.D. :1945 A ge:79 Y S ex:Female Date:08/26/2024 Address:[address] [place] [address] , [place], [id number] Subjective: * Chief Complaints: * 1 . 6 month check. 2. Needs labs. * HPI: C ardiology: The pt is here for a check up on Hypertension and Hyperlipidemia. Pt states she is doing well and denies any new concerns today. Pt states she is fasting. Pt is needing refills sent to [facility] mail order pharmacy. Denies : Chest Pain. [...] acrocytic anemia - D53.9 8 . B [place] 33.0-33.9,adult - Z68.33 Plan: * Treatment: Value [...] * Images: Billing Information: * Visit Code: 47465 Office Visit, Est Pt., Level 4. * [...] Date: 0 08/26/2024 Generated for Julio Cesari sophie/Kale/eTranayaditting on: 0 09/29/2024 01:15 PM EDT History [...]
--- NOTE | 2024-09-29 | CA_ITS ---
FINAL REPORT CLINICAL HISTORY: GELA,HTN,HLD FINDINGS: RIGHT CAROTID: CCA PSV - 123 cm/sec ICA PSV - 96 cm/sec ICA/CCA PSV ratio -0.78 . Comments: Mild plaque disease is noted. LEFTCAROTID: CCA PSV - 110. cm/sec ICA PSV - 99. cm/sec ICA/CCA PSV ratio - 1.04 . Comments: Mild plaque disease is noted. Antegrade flow is seen within the vertebral arteries. IMPRESSION: Carotid stenosis classified less than 50% Reviewed, Interpreted and Dictated by Leanne Em MD Transcribed by Princess Hook Authenticated and [facility]
--- OUTSIDE RECORDS SUMMARY | 2024-09-29 13:15 | XMS_ITS | Patient Health Record ---
[facility] Organization [facility] Address [address] [facility] [address] [place] [id number] Care Team Providers Care Outbound Supervisor Name Role Phone Mandi Davis Primary Care Provider [phone] Allergies No Known Allergies Results Component Value Reference Range Notes P-Comprehensive Metabolic Pa claribel (CMP) Reviewed date:08/28/2024 08:51:05 AM Interpretation:normal Performing Lab: Notes/Report: Test performed by [facility] [address] [place] [address] , [address], [place] [address] Ho Lal MD, Improvement Director CLIA: [id number] Sodium 140 135-145 mmol/L Potassium 4.6 3.5-5.3 [...] 75 Performing Lab: Notes/Report: Test performed by [facility] [address] [place], [place] [address] [place] , [address], [place] [address] Ho Lal MD, Improvement Director ZACK: [id number] Cholesterol 145 <200 mg/dL Triglycerides 86 <150 [...] ATPIII guidelines LDL/HDL Ratio 1.4 <3.3 Ratio ____ LDL Cholesterol Patient History ____ Test Date: 08/28/2023 LDL Results: 73 Units: mg/dL % Change: -8% ---- Test Date: 02/26/2024 LDL Results: 63 Units: mg/dL % Change: -13% ---- Test Date: 08/26/2024 LDL Results: 75 Units: mg/dL % Change: +19% ____ P-Magnesium Reviewed date:08/28/2024 08:51:05 AM Interpretation:2.2 Performing Lab: Notes/Report: Test performed by [facility] [address] , [address], [place] [address] Ho Lal MD, Improvement Director CLIA: [id number] Magnesium 2.2 1.6-2.4 mg/dL P-TSH Reviewed date:08/28/2024 08:51:05 AM Interpretation:1.3 Performing Lab: Notes/Report: [facility] [address] , [address], [place] [address] Ho Lal MD, Improvement Director CLIA: [id number] TSH 1.30 0.43-5.25 mU/L Mammogram Reviewed date:10/12/2023 09:51:02 AM Interpretation:Negative, annual f/u Performing Lab: Notes/Report: Negative, annual f/u result Negative, annual f/u P-Lipid Panel Reviewed date:02/28/2024 08:32:02 AM Interpretation:Normal Performing Lab: Notes/Report: Test performed by [facility] [address] , [address], [place] [address] Ho Lal MD, Improvement Director CLIA: [id number] Cholesterol 132 <200 mg/dL Triglycerides 50 <150 [...] Interpretation:Normal Performing Lab: Notes/Report: Test performed by [facility], [facility] [address] [facility] , [address], [place] [address] Ho Lal MD, Improvement Director CLIA: [id number] TSH 1.08 0.43-5.25 mU/L Reason For Referral No Information Medications Medication SIG (Take, Route, Frequency, Duration) Notes Start Date End Date Status Simvastatin 20 MG TAKE 1 TABLET AT BEDTIME; Duration: 90 Active Fiber - as directed Orally A ctive Simvastatin 20 MG 1 tab(s) orally once a day (at bedtime) Active Multiple Vitamin - 1 cap(s) orally once a day Active Calcium-Vitamin D-Minerals 600-800 MG-UNIT 1 tab(s) orally 2 times a day Active Aspirin 81 MG 1 tab(s) orally once a day; Duration: 30 day(s) Active Magnesium 250 MG 1 tablet with a meal Orally Once a day; Duration: 30 day(s) Active Iron 325 (65 Fe) MG 1 tablet Orally Thre e times a Week; Duration: 30 day(s) Active Hydroxyurea 500 MG as directed orally o nce a day Active Melatonin 5 MG 1/2 cap orally once a day (at bedtime) Not-Taking Aspirin 325 MG 1 tab(s) orally once a day Active Lisinopril-hydroCHLOROthi azide 10-12.5 MG TAKE 1 TABLET EVERY DAY; Duration: 90 Active Lisinopril-hydroCHLOROthi azide 10-12.5 MG 1 tab(s) orally once a day Active Immunizations Vaccine Route Administration Date Status Comme nts COVID 19 Moderna Unknown 04/07/2020 Administered COVID 19 Moderna Unknown 05/05/2020 Administered COVID 19 Moderna Unknown 11/17/2020 Administered COVID 19 Moderna Unknown 06/29/2021 Administered Fluzone High Dose (65yr and older) Unknown 12/13/2015 Administered Fluzone High Dose (65yr and older) Unknown 12/26/2016 Administered Fluzone High Dose (65yr and older) Unknown 12/18/2017 Administered Fluzone High Dose (65yr and older) Unknown 12/20/2018 Administered Fluzone Quad (6months&older) Unknown 12/16/2019 Administered Fluzone Quad-Medicare (6months&older) Unknown 12/15/2020 Administered PNEUMOVAX 23 VACCINE Unknown 02/23/2015 Administered PNEUMOVAX 23 VACCINE IM Intramuscular 02/22/2021 Administe red Prevnar (PCV13) Unknown 08/25/2014 Administered Prevnar (PCV20) IM Intramuscular 02/22/2023 Administered Shingrix Unknown 01/14/2021 Administered Shingrix Unknown 05/04/2021 Administered Zostavax Unknown 02/25/2014 Administered Problems Problem Type SNOMED Code ICD Code Onset Dates Problem Status W/U Status Risk Notes Problem Essential hypertension (48679485) Essential hypertension (I10) Active confirmed Problem BMI 30+ - obesity (737112851) BMI 32.0-32.9,adult (Z68.32) Active confirmed Problem Obese class I (784631622660346) BMI 33.0-33.9,adult (Z68.33) Active confirmed Problem Occlusion and stenosis of multiple and bilateral cerebral arteries (788754223) Occlusion and stenosis of bilateral carotid arteries (I65.23) Active confirmed Problem Primary osteoarthritis (654621510) Primary osteoarthritis involving multiple joints (M15.0) Active confirmed Problem Neuropathy (063676536) Neuropathy (G62.9) Active confirmed Problem Multinodular goiter (841564948) Multinodular goiter (E04.2) Active confirmed Problem Macrocytic anemia (48716386) Macrocytic anemia (D53.9) Active confirmed Problem Dyslipidemia (015718389) Dyslipidemia (E78.5) Active confirmed Problem Osteopenia (979821808) Osteopenia, unspecified location (M85.80) Active confirmed Problem Essential thrombocytosis (754964486) Essential thrombocytosis (D47.3) Active confirmed Problem Localized, primary osteoarthritis of the ankle and/or foot (466504011) 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) Active confirmed Problem Occlusion and stenosis of multiple and bilateral cerebral arteries (915699157) Asymptomatic bilateral carotid artery stenosis (I65.23) Active confirmed Vital Signs Heart Rate 60 /min 08/26/2024 Blood pressure diastolic 76 mm Hg 08/26/2024 Height 63 in 08/26/2024 Blood pressure systolic 130 mm Hg 08/26/2024 Weight 190.2 lbs 08/26/2024 BMI 33.69 kg/m2 08/26/2024 Encounters Encounter Location Date Provider Diagnosis [place] [address] [facility] [address] [place] [id number] 02/26/2024 R Roge Davis Essential hypertensi on I10 ; Dyslipidemia E78.5 ; Osteopenia, unspecified location M85.80 ; Essential thrombocytosis D47.3 ; Multinodular goiter E04.2 ; Asymptomatic bilateral carotid artery stenosis I65.23 and Macrocytic anemia D53.9 [facility] [address] [facility] [address] [place], [place] [id number] 08/26/2024 R Roge Ryan Essential hypertensi on I10 ; Dyslipidemia E78.5 ; Osteopenia, unspecified location M85.80 ; Essential thrombocytosis D47.3 ; Multinodular goiter E04.2 ; Asymptomatic bilateral carotid artery stenosis I65.23 ; Macrocytic anemia D53.9 and BMI 33.0-33.9,adult Z68.33 [facility] [address] [facility] [address] [facility] [address] [place], [place] [id number] 10/07/2023 R Roge Ryan [facility] [address] [facility] [address] [facility] [address] [place], [place] [id number] 02/28/2024 R Roge Ryan [facility] [address] [facility] [address] [facility] [address] [place], [place] [id number] 08/28/2024 R Roge Ryan [facility] [address] [facility] [address] [facility] [address] [place], [place] [id number] 09/24/2024 R Roge Ryan Assessments Encounter Date Diagnosis (ICD Code) Assessment Notes Treatment Notes Treatment Clinical Notes Section Notes 02/26/2024 Essential hypertension (ICD-10 - I10) 02/26/2024 Dyslipidemia (ICD-10 - E78.5) 08/26/2024 Essential hypertension (ICD-10 - I10) 08/26/2024 Dyslipidemia (ICD-10 - E78.5) 08/26/2024 Osteopenia, unspecified location (ICD-10 - M85.80) 02/26/2024 Osteopenia, unspecified location (ICD-10 - M85.80) 02/26/2024 Essential thrombocytosis (ICD-10 - D47.3) Continue follow-up with Dr. Abad 08/26/2024 Essential thrombocytosis (ICD-10 - D47.3) Continue follow-up with Dr. Abad 08/26/2024 Multinodular goiter (ICD-10 - E04.2) 02/26/2024 Multinodular goiter (ICD-10 - E04.2) 02/26/2024 Asymptomatic bilateral carotid artery stenosis (ICD-10 - I65.23) 08/26/2024 Asymptomatic bilateral carotid artery stenosis (ICD-10 - I65.23) 08/26/2024 Macrocytic anemia (ICD-10 - D53.9) 02/26/2024 Macrocytic anemia (ICD-10 - D53.9) 08/26/2024 BMI 33.0-33.9,adult (ICD-10 - Z68.33) Plan Of Treatment Pending Test Test Name Order Date Carotid Duplex 09/24/2024 Next Appt Details Provider Name:Mandi Echeverriaxiang argelia, 02/26/2025 09:00:00 AM, [address] [facility], [address], [place], [place], [id number], Insurance Providers Payer Name Payer Address Payer Phone Subscriber Number Group Number Insured Name Patient Relationship to Insured Coverage Start Date Coverage End Date [employer] (MEDICAR E) [address] [address] [place] [address] [id number] August Self - patient is the insured Medications [...] History Surgery Date(Month/Year) left breast wedge resection 1984 wisdom teeth removed 1971 sub-total thyroidectomy for goiter 1974 cholecystectomy 1998 foreign body removed from left ear 2017 cataract surgery both eyes 2016 Laminectomy L4 L5 1983 C-scope 07/2020
--- OUTSIDE RECORDS SUMMARY | 2024-09-29 13:15 | XMS_ITS | Clinical Summary ---
Author Organization [facility] Address [address] [place] [address] Care Team Providers Care Supervisor Trust Accounts Name Role Phone Jacinto Davis MD Primary Care Provider [phone]- [phone] Family History Medical History Relation Name Comments [...] 11/04/2024 9:30 AM EDT Ovarian Cancer Screening [facility] [address] [facility], [address]rd [place] [address] Health Maintenance Due Date Last Done Comments [facility]-Bone Density Scan 1945 [facility]-Depression Screening 1945 [facility]-Hepatitis C Screening 1945 [facility]-Infant/Child/Adol SDOH Screenings 1945 [facility]- SDOH Screenings 08/14/1963 UKY-Adult SDOH Screenings 08/14/1963 UKY-DTaP,Tdap,and Td Vaccines (1 - Tdap) 1964 LSS-LEGMR-66 Vaccine (7 - season) 2023 01/10/2023, 01/11/2022, 06/29/2021, Additional history exists [facility]Y-Influenza Vaccine (#1) 11/10/202412/11, 12/14/2021, 12/15/2020, Additional history exists UKY-Zoster Vaccines [...] age to complete this topic Care Teams Supervisor Trust Accounts Relationship Specialty Start Date End Date Jacinto Davis MD [address] [place] [address] [place] [address] PCP - General 11/03/21
--- OUTSIDE RECORDS SUMMARY | 2024-09-29 13:16 | XMS_ITS | Clinical Summary ---
[facility] Address [address] [place] [address] Care Team Providers Care Real Property Appraiser Name Role Phone Jacinto Davis MD Primary Care Provider Medications Sod Picosulfate-Mag Ox-Cit Acd 10-3.5-12 MG-GM -GM/160ML solutionIndicat ions:Screening for colon cancer Take 1 kit by mouth Take As Directed. Follow instructions that were mailed to your home. If you didn't receive these call [phone]. 320 mL Active Family History Medical History Relation Name Comments Breast cancer Maternal Aunt Ovarian cancer Mother approximate Relation Name Status Comments Maternal Aunt Mother Social History Tobacco Use Types Packs/Day Years Used Date Smoking Tobacco: Never Assessed Abuse Screen Answer Date Recorded Unsafe at Home or Work/School Not on file Feels Threatened by Someone? Not on file 11/2022 Does Anyone Keep You from Co ntacting Others or Doint Things Outside the Home? Not on file 12/18/2022 Physical Sign of Abuse Present Not on file 1 Housing Stability Answer Date Recorded Current Living Arrangements Not on file 11/2022 Potentially Unsafe Housing Conditions Not on nanci e 12/18/2022 Family and Community Support Answer Sid e Recorded Help with Day-to-Day Activities Not on file 12/18/2022 Lonely or Isolated Not on file 12/18/2022 Employment Answer Date Recorded Do you want help finding or keeping work or a katie b? Not on file 12/18/2022 Disabilities Answer Date Recorded Concentrating, Remembering, or Making Decisions Difficulty Not on file 12/18/2022 Doing Errands Independently Difficulty Not on fi le 12/18/2022 Education Answer Date Recorded Help with school or training? Not on file Preferred Language Not on file 12/18/2022 Comments No Sex and Gender Information Value Date Recorded Sex Assigned at Not on file Legal Sex Female 12:36 PM EDT Gender Identity Not on file Sexual Orientation Not on file Plan of Treatment Upcoming Encounters Date Type Department Care Team (Late st Contact Info) Description 10/09/2024 9:20 AM EDT Appointment [facility] [address] [place] [address] Health Maintenance Due Date Last Done Comments DXA SCAN 1945 TDAP/TD VACCINES (1 - Tdap) 1964 ANNUAL WELLNESS VISIT 06/28/2020 HEPATITIS C SCREENING 06/28/2020 RSV Vaccine - Adults (1 - 1- dose 75+ series) 2020 COVID-19 Vaccine (2023-2 5 season) 2023 01/10/2023, 01/11/2022, 06/29/2021, Additional history exists INFLUENZA VACCINE 12/10/2024 12/11/2022, , 12/15/2020, Additional history exists COLONOSCOPY Discontinued 08/10/2020 COLORECTAL CANCER SCREENING Discontinued ZOSTER VACCINE Completed 05/04/2021, 01/14/2021 Pneumococcal Vaccine 50+ Completed 02/22/2023, 02/09 MAMMOGRAM Discontinued 10/08/2023, 09/10, 10/05/2021, Additional history exists COLOGUARD Discontinued COLON CANCER SCREENING [address] COLONOGRAPHY Discontinued FECAL OCCULT BLOOD TEST Discontinued FIT Testing (1 year) Discontinued Procedures Procedure Name Priority Date/Time Associated Diagnosis Comments MAMMO SCREENING DIGITAL TOMOSYNTHESIS BILATERAL W CAD Routine 10/08/2023 9:15 AM EDT Visit for screening mammogram SCANNED - COLONOSCOPY 08/10/2020 from Last 3 Months or Most Recently Relevant to Health Maintenance Results * Mammo Screening Digital Tomosynthesis Bilateral With CAD (10/08/2023 9:15 AM EDT) Anatomical Region Laterality Modality Breast N/A Mammography 10/11/2023 3:32 PM EDT Impressions 10/11/2023 3:35 PM EDT No mammographic findings suspicious for malignancy. RECOMMENDATION: Continue annual screening mammography. BI-RADS CATEGORY 1, NEGATIVE. CAD was utilized. The standard false-negative rate of mammography is between 10% and 25%. Complex patterns or increased breast density will markedly elevate the false-negative rate of mammography. A letter, in lay terminology, with the results of this exam will be mailed to the patient. This report was finalized on 10/11/2023 3:[address] Priscilla Abraham MD. Narrative 10/11/2023 3:35 PM EDT BILATERAL SCREENING MAMMOGRAM WITH TOMOSYNTHESIS: HISTORY: The patient has no personal history or significant family history of breast cancer and no focal breast complaints at the time of screening mammography. Her mother was diagnosed with ovarian cancer. A maternal aunt was diagnosed with breast cancer. TECHNIQUE: Bilateral CC and MLO low dose, full field digital mammographic images were obtained with tomosynthesis. COMPARISON: 10/06/2022, 10/05/2021, 11/25/2020, 11/05/2020, 10/04/2020, 10/02/2019, 09/25/2018, 09/24/2017, 09/21/2016, and 09/14/2015 FINDINGS: There are scattered areas of fibroglandular density. The fibroglandular pattern is stable. There are no suspicious masses, worrisome calcifications, nonsurgical areas of architectural distortion, or other secondary signs of malignancy. Jacinto Davis MD IMG MAMMOGRAPHY ORDERA BLES Final Result * SCANNED - COLONOSCOPY (08/10/2020) Osmin Bhatia MD CHART REVIEW TABS Final Res ult from Last 3 Months or Most Recently Relevant to Health [place] [address] [employer] MEDICARE ADVANTAGE PPO Care Teams Real Property Appraiser Relationship Specialty Start Date End Date Jacinto Davis MD [address] [facility] [address] [place] [address] PCP - General Family Medicine 09/24/17
== END 2024-09-29 23:59 | disposition home or self-care (01) ==
LOC: RT 13:13
PROVIDERS: PCP Family Medicine; Visit Provider Family Medicine
DX: I65.23 Occlusion and stenosis of bilateral carotid arteries (principal); I10 Essential (primary) hypertension; E78.5 Hyperlipidemia, unspecified
CPT/HCPCS: 93880

== ENCOUNTER 2025-02-17 07:43 | Outpatient (CLI) | payer MEDICARE, SELFPAY ==
--- OUTSIDE RECORDS SUMMARY | 2023-08-28 04:15 | XMS_ITS ---
Author Organization [facility] Address [address] [facility] [address] [facility] [address] [place] [id number] Care Team Providers Care Windows Security Analyst Name Role Phone Mandi Davis Primary Care Provider Allergies No Known Allergies Results Component Value Reference Range Notes P-Comprehensive Metabolic Pa claribel (CMP) Reviewed date:08/30/2023 08:40:28 AM Interpretation:gluc 100, Ca 10.5 Performing Lab: Notes/Report: CLIA: [id number] Ho Lal MD, Lathe Setup Operator [address] [place] [address] , [address], [place] [address] Test performed by [facility] Sodium 141 135-145 mEq/L Potassium 5.2 3.5-5.3 mEq/L Chloride 104 97-108 mEq/L CO2 27 22-32 mEq/L Glucose 100 65-99 mg/dL BUN 18 8-23 mg/dL Creatinine 0.95 0.50-1.00 mg/dL Calcium 10.5 8.6-10.4 mg/dL eGFR by Creatinine 61 >59 mL/min/1.73m2 Protein 7.2 6.0-8.3 g/dL Albumin 4.3 3.5-5.3 g/dL Alkaline Phosphatase 89 35-121 IU/L ALT (SGPT) 15 <5-47 IU/L AST (SGOT) 23 <5-40 IU/L Bilirubin, Total 0.4 <0.2-1.2 mg/dL A/G Ratio 1.5 1.1-2.5 mg/dL P-Lipid Panel Reviewed date:08/30/2023 08:40:28 AM Interpretation:Normal Performing Lab: Notes/Report: Test performed by [facility] [address] [place] [address] , [place] [address] Ho Lal MD, Lathe Setup Operator [facility]: [id number] Cholesterol 140 <200 mg/dL Triglycerides 66 <150 mg/dL HDL Cholesterol 54 >39 mg/dL Cholesterol / HDL Ratio 2.59 0.00-4.44 Ratio Non-HDL Cholesterol 86 <130 mg/dL LDL Cholesterol (Calculation) 73 <130 mg/dL LDL Cholesterol Levels* Less than 100 mg/dL Optimal 100 to 129 mg/dL Near Optimal/ Above Optimal 130 to 159 mg/dL Borderline High 160 to 189 mg/dL High 190 mg/dL and above Very High * Categories as recommended by the 2004 ATPIII guidelines LDL/HDL Ratio 1.3 <3.3 Ratio LDL Cholesterol Patient History Test Date: 08/24/2022 LDL Results: 73 Units: mg/dL % Change: +7% Test Date: 02/22/2023 LDL Results: 80 Units: mg/dL % Change: +9% Test Date: 08/28/2023 LDL Results: 73 Units: mg/dL % Change: -8% P-TSH Reviewed date:08/30/2023 08:40:28 AM Interpretation:Normal Performing Lab: Notes/Report: Test performed by [facility] [address] [place] [address] , [address], [place] [address] Ho Lal MD, Lathe Setup Operator CLIA: [id number] TSH 1.01 0.43-5.25 mU/L Bone density Reviewed date:10/07/2023 10:07:22 PM Interpretation:osteopenia left femoral neck Performing Lab: Notes/Report: osteopenia left femoral neck REASON FOR VISIT 6 month checkup, Needs labs & bone density screening Medications Medication SIG (Take, Route, Frequency, Duration) Notes Start Date End Date Status Hydroxyurea 500 MG as directed orally o nce a day Active Multiple Vitamin - 1 cap(s) orally once a day Active Aspirin 81 MG 1 tab(s) orally once a day; Duration: 30 day(s) Active Magnesium 250 MG 1 tablet with a meal Orally Once a day; Duration: 30 day(s) Active Iron 325 (65 Fe) MG 1 tablet Orally Thre e times a Week; Duration: 30 day(s) Active Aspirin 325 MG 1 tab(s) orally once a day Active Lisinopril-hydroCHLOROthi azide 10-12.5 MG 1 tab(s) orally once a day Active Simvastatin 20 MG 1 tab(s) orally once a day (at bedtime) Active Calcium-Vitamin D-Minerals 600-800 MG-UNIT 1 tab(s) orally 2 times a day Active Melatonin 5 MG 1/2 cap orally once a day (at bedtime) Not-Taking Lisinopril-hydroCHLOROthi azide 10-12.5 MG TAKE 1 TABLET EVERY DAY; Duration: 90 Active Simvastatin 20 MG 1 tab(s) orally once a day (at bedtime) Active Vital Signs Blood pressure systolic 118 mm Hg 08/28/19 24 Blood pressure diastolic 70 mm Hg 024 Heart Rate 76 /min 08/28/2023 Height 63 in 08/28/2023 Weight 187 lbs 08/28/2023 BMI 33.12 kg/m2 08/28/2023 Encounters Encounter Location Date Provider Diagnosis [facility] [address] [facility] 36 [facility] [address] [place] [id number] 08/28/2023 Mandi Davis Essential hypertensi on I10 ; Dyslipidemia E78.5 ; Osteopenia, unspecified location M85.80 ; Essential thrombocytosis D47.3 ; Multinodular goiter E04.2 ; Asymptomatic bilateral carotid artery stenosis I65.23 and Macrocytic anemia D53.9 Assessments Encounter Date Diagnosis (ICD Code) Assessment Notes Treatment Notes Treatment Clinical Notes Section Notes 08/28/2023 Essential hypertension (ICD-10 - I10) 08/28/2023 Dyslipidemia (ICD-10 - E78.5) 08/28/2023 Osteopenia, unspecified location (ICD-10 - M85.80) 08/28/2023 Essential thrombocytosis (ICD-10 - D47.3) Continue follow-up with Dr. Abad 08/28/2023 Multinodular goiter (ICD-10 - E04.2) 08/28/2023 Asymptomatic bilateral carotid artery stenosis (ICD-10 - I65.23) 08/28/2023 Macrocytic anemia (ICD-10 - D53.9) Plan Of Treatment Medication Medication Name Sig Start Date Stop Date Notes Hydroxyurea 500 MG as directed orally o nce a day Aspirin 325 MG 1 tab(s) orally once a day Lisinopril-hydroCHLOROthiazi de 10-12.5 MG 1 tab(s) orally once a day Simvastatin 20 MG 1 tab(s) orally once a day (at bedtime) Calcium-Vitamin D-Minerals 600-800 MG-UNIT 1 tab(s) orally 2 times a day Treatment Notes Assessment Notes Essential thrombocytosis Continue follow -up with Dr. Abad Next Appt Details Follow Up: 6 Months, Reason: Provider Name:Mandi Owens, 02/26/2025 09:00:00 AM, [address] [facility] 36 [facility], [address], [place], [id number], Progress Notes * MARIAJOSE LOWERY:1945 (79 yo F)Acc No.[id number]:08/28/2023 Progress Notes Patient: Warren HARTMANAugust Provider: Mandi Davis M.D. :1945 A ge:78 Y S ex:Female Date:08/28/2023 Address:[address] [place] [address] , [place], [id number] Subjective: * Chief Complaints: * 1 . 6 month checkup. 2. Needs labs & bone density screening. * HPI: C ardiology: Blood Pressure Elevated P t presents today for a 6 month check up. E ndocrinology: Maintenance P t is fasting today. Pt had a CMP and CBC drawn by her oncologist but needs to have her cholesterol and thyroid levels checked today. * ROS: D ERMATOLOGY: no R shereen. [...] nurse. Alcohol: No. * Medications: T aking Iron 325 (65 Fe) MG Tablet 1 tablet Orally Three times a Week , Taking Magnesium 250 MG Tablet 1 tablet with a meal Orally Once a day , Taking Aspirin 81 MG Tablet Delayed Release 1 tab(s) orally once a day , Taking Multiple Vitamin - Capsule 1 cap(s) orally once a day , Taking Calcium-Vitamin D-Minerals 600-800 MG-UNIT Tablet Chewable 1 tab(s) orally 2 times a day , Taking Aspirin 325 MG Tablet 1 tab(s) orally once a day , Taking Hydroxyurea 500 MG Capsule as directed orally once a day , Taking Lisinopril-hydroCHLOROthiazide 10-12.5 MG Tablet TAKE 1 TABLET EVERY DAY , Taking Simvastatin 20 MG Tablet 1 tab(s) orally once a day (at bedtime) , Not-Taking Melatonin 5 MG Capsule 1/2 cap orally once a day (at bedtime) , Discontinued Paxlovid (300/100) 20 x 150 MG & 10 x 100MG Tablet Therapy Pack as directed Orally , Medication List reviewed and reconciled with the patient * Allergies: N .K.D.A. Objective: * Vitals: W t:187, Temp:98.3, BP:118/70, HR:76, Nurse:NANCY, Ht: 63, BMI:33.12. * Examination: G eneral Examination: General Appearance: N AD. H EENT: sclera and conjunctiva clear, PERRLA, TM's normal, translucent. O ral cavity: n o lesions, mucosa moist and WNL, no erythema. N moise: s upple, no lymphadenopathy, no carotid bruits. C hest: n ormal shape and expansion. H eart: R SR. L ungs: c lear to auscultation. E xtremities: n o leg edema. Assessment: * Assessment: 1. E ssential hypertension - I10 (Primary) 2 . D yslipidemia - E78.5 ? 3 . O steopenia, unspecified location - M85.80 4 . E ssential thrombocytosis - D47.3 5 . M ultinodular goiter - E04.2 6 . A symptomatic bilateral carotid artery stenosis - I65.23 7 . M acrocytic anemia - D53.9 Plan: * Treatment: 2. D yslipidemia Refill Simvastatin Tablet, 20 MG, 1 tab(s), orally, once a day (at bedtime), 90, Refills 1. ? L AB: P-Lipid Panel (Collection Date & Time - 08/28/2023 08:25 AM) N ormal Value Reference Range C holesterol / HDL Ratio 2.59 0.00-4.44 - Ratio * C holesterol 140 <200 - mg/dL * H DL Cholesterol 54 >39 - mg/dL * L DL Cholesterol (Calculation) 73 <130 - mg/d L * L DL/HDL Ratio 1.3 <3.3 - Ratio * N on-HDL Cholesterol 86 <130 - mg/dL * T riglycerides 66 <150 - mg/dL * Mandi Davis 08/30/2023 8 :40:19 AM >See phone encounter 3.?Osteopenia, unspecified location? Continue Calcium-Vitamin D-Minerals Tablet Chewable, 600-800 MG-UNIT, 1 tab(s), orally, 2 times a day.?Imaging: Bone density (Performed Date - 09/24/2023)?osteopenia left femoral neck* Linda Tejada 08/28/2023 9:18: 24 AM > [facility] 09/24/2023 at 09:15am; pt informed; order Mandi Granados 10/07/2023 10:07:13 PM > See phone encounter 4.?Essential thrombocytosis? Continue Aspirin Tablet, 325 MG, 1 tab(s), orally, once a day;?Continue Hydroxyurea Capsule, 500 MG, as directed, orally, once a day.?? Notes: Continue follow-up with Dr. Abad??5.?Multinodular goiter?LAB: P-TSH (Collection Date & Time - 08/28/2023 08:25 AM)?Normal* Value Reference Range T SH 1.01 0.43-5.25 - mU/L * Mandi Davis 08/30/2023 8 :40:19 AM >See phone encounter * Labs: * L ab: P-Comprehensive Metabolic Panel (CMP) (Collection Date & Time - 08/28/2023 08:25 AM) g cem 100, Ca 10.5 Value Reference Range A /G Ratio 1.5 1.1-2.5 - mg/dL * A lbumin 4.3 3.5-5.3 - g/dL * A lkaline Phosphatase 89 35-121 - IU/L * A LT (SGPT) 15 <5-47 - IU/L * A ST (SGOT) 23 <5-40 - IU/L * B ilirubin, Total 0.4 <0.2-1.2 - mg/dL * B UN 18 8-23 - mg/dL * C alcium 10.5 H 8.6-10.4 - mg/dL * C hloride 104 97-108 - mEq/L * C O2 27 22-32 - mEq/L * C reatinine 0.95 0.50-1.00 - mg/dL * G lucose 100 H 65-99 - mg/dL * P otassium 5.2 3.5-5.3 - mEq/L * S odium 141 135-145 - mEq/L * P rotein 7.2 6.0-8.3 - g/dL * e GFR by Creatinine 61 >59 - mL/min/1.73m2 * [facility], IT support 08/29/2023 06:35:05 : This order was created by the Interface. Mandi Davis 08/30/2023 8:40:19 AM >See phone encounter * Follow Up: 6 Months * Images: Billing Information: * Visit Code: 02060 Office Visit, Est Pt., Level 3. * Procedure Codes: * Electronic signature of Mandi Davis MD on 02/17/2025 at 07:57 AM EST Sign off status: Pending * Provider: Mandi Davis M.D. Date: 0 08/28/2023 Generated for Pranav barrios/Kale/eTransmitting on: 1 04/20/2024 07:57 AM EST History and Physical Notes * HPI (History of Present Illness) Category Sub-Category Detail Notes Category Not es Endocrinology Maintenance Pt is fasting to day. Pt had a CMP and CBC drawn by her oncologist but needs to have her cholesterol and thyroid levels checked today Cardiology Blood Pressure Elevated Pt prese nts today for a 6 month check up Examination Category Sub-Category Detail Notes Category Not [...]
--- OUTSIDE RECORDS SUMMARY | 2024-02-26 04:00 | XMS_ITS ---
Author Organization [facility] Address 1210 [facility] [address] [place] [phone] Care Team Providers Care Blood Bank Custodian Name Role Phone Mandi Davis Primary Care Provider Allergies No Known Allergies Results Component Value Reference Range Notes P-Lipid Panel Reviewed date:02/28/2024 08:32:02 AM Interpretation:Normal Performing Lab: Notes/Report: Test performed by [employer] [address] [place] [address] , [address], [place] [address] Ho Lal MD, Screen Printing Machine Operator CLIA: [id number] Cholesterol 132 <200 mg/dL Triglycerides 50 <150 mg/dL HDL Cholesterol 59 >39 mg/dL Cholesterol / HDL Ratio 2.24 0.00-4.44 Ratio Non-HDL Cholesterol 73 <130 mg/dL LDL Cholesterol (Calculation) 63 <130 mg/dL LDL Cholesterol Levels* Less than 100 mg/dL Optimal 100 to 129 mg/dL Near Optimal/ Above Optimal 130 to 159 mg/dL Borderline High 160 to 189 mg/dL High 190 mg/dL and above Very High * Categories as recommended by the 2004 ATPIII guidelines LDL/HDL Ratio 1.1 <3.3 Ratio LDL Cholesterol Patient History Test Date: 02/22/2023 LDL Results: 80 Units: mg/dL % Change: +9% Test Date: 08/28/2023 LDL Results: 73 Units: mg/dL % Change: -8% Test Date: 02/26/2024 LDL Results: 63 Units: mg/dL % Change: -13% P-TSH Reviewed date:02/28/2024 08:32:02 AM Interpretation:Normal Performing Lab: Notes/Report: Test performed by [employer], [address] , [facility], [place] [address] Ho Lal MD, Screen Printing Machine Operator CLIA: [id number] TSH 1.08 0.43-5.25 mU/L REASON FOR VISIT 6 month check Medications Medication SIG (Take, Route, Frequency, Duration) Notes Start Date End Date Status Multiple Vitamin - 1 cap(s) orally once a day Active Aspirin 81 MG 1 tab(s) orally once a day; Duration: 30 day(s) Active Magnesium 250 MG 1 tablet with a meal Orally Once a day; Duration: 30 day(s) Active Iron 325 (65 Fe) MG 1 tablet Orally Thre e times a Week; Duration: 30 day(s) Active Hydroxyurea 500 MG as directed orally o nce a day Active Aspirin 325 MG 1 tab(s) orally once a day Active Lisinopril-hydroCHLOROthi azide 10-12.5 MG 1 tab(s) orally once a day Active Simvastatin 20 MG 1 tab(s) orally once a day (at bedtime) Active Fiber - as directed Orally A ctive Calcium-Vitamin D-Minerals 600-800 MG-UNIT 1 tab(s) orally 2 times a day Active Melatonin 5 MG 1/2 cap orally once a day (at bedtime) Not-Taking Problems Problem Type SNOMED Code ICD Code Onset Dates Problem Status W/U Status Risk Notes Problem Macrocytic anemia (57475706) Macrocytic anemia (D53.9) Active confirmed Vital Signs Blood pressure systolic 128 mm Hg 02/26/20 24 Blood pressure diastolic 74 mm Hg 024 Heart Rate 82 /min 02/26/2024 Height 63 in 02/26/2024 Weight 190 lbs 02/26/2024 BMI 33.65 kg/m2 02/26/2024 Encounters Encounter Location Date Provider [facility] [place] [place] [address], [place] [phone] 02/26/2024 R Roge Davis Essential hypertensi on I10 ; Dyslipidemia E78.5 ; Osteopenia, unspecified location M85.80 ; Essential thrombocytosis D47.3 ; Multinodular goiter E04.2 ; Asymptomatic bilateral carotid artery stenosis I65.23 and Macrocytic anemia D53.9 Assessments Encounter Date Diagnosis (ICD Code) Assessment Notes Treatment Notes Treatment Clinical Notes Section Notes 02/26/2024 Essential hypertension (ICD-10 - I10) 02/26/2024 Dyslipidemia (ICD-10 - E78.5) 02/26/2024 Osteopenia, unspecified location (ICD-10 - M85.80) 02/26/2024 Essential thrombocytosis (ICD-10 - D47.3) Continue follow-up with Dr. Abad 02/26/2024 Multinodular goiter (ICD-10 - E04.2) 02/26/2024 Asymptomatic bilateral carotid artery stenosis (ICD-10 - I65.23) 02/26/2024 Macrocytic anemia (ICD-10 - D53.9) Plan Of [...] Follow Up: 6 Months, Reason: Provider Name:Mandi Butt et, 02/26/2025 09:00:00 AM, [address] [facility] [address], [address], [place], [phone], Progress Notes * SEBASTIÁN AUGUSTDOB:1945 (79 yo F)Acc No.[id number]:02/26/2024 Progress Notes Patient: Warren HARTMANAugust Provider: Mandi Davis M.D. :1945 A ge:78 Y S ex:Female Date:02/26/2024 Address:[address] [place] [address] , [place], [id number] Subjective: * Chief Complaints: * 1 . 6 month check. * HPI: E ndocrinology: Maintenance P t presents today for a 6 month check up. Pt is fasting today. Pt sts that she has recently had a CBC and CMP but is due for a TSH and Lipid. Pt sts that she has no new concerns or complaints at this time. * ROS: D ERMATOLOGY: no R shereen. [...] nurse. Alcohol: No. * Medications: T aking Fiber - Capsule as directed Orally , Taking Iron 325 (65 Fe) MG Tablet 1 [...] as directed orally once a day , Not-Taking Melatonin 5 MG Capsule 1/2 cap orally once a day (at bedtime) , Discontinued Aspirin 325 MG Tablet 1 tab(s) orally once a day , Medication List reviewed and reconciled with the patient * Allergies: N .K.D.A. Objective: * Vitals: W t:190, Temp:97.9, BP:128/74, HR:82, Nurse:NANCY, Ht: 63, BMI:33.65. * Examination: G [...] P-Lipid Panel (Collection Date & Time - 02/26/2024 08:26 AM) N ormal Value Reference Range C holesterol / HDL Ratio 2.24 0.00-4.44 - Ratio * C holesterol 132 <200 - mg/dL * H DL Cholesterol 59 >39 - mg/dL * L DL Cholesterol (Calculation) 63 <130 - mg/d L * L DL/HDL Ratio 1.1 <3.3 - Ratio * N on-HDL Cholesterol 73 <130 - mg/dL * T riglycerides 50 <150 - mg/dL * Mandi Davis 02/28/2024 8:31:53 AM >See phone encounter 3.?Osteopenia, unspecified location? Continue Calcium-Vitamin D-Minerals Tablet Chewable, 600-800 MG-UNIT, 1 tab(s), orally, 2 times a day.??4.?Essential thrombocytosis? Continue Aspirin Tablet, 325 MG, 1 tab(s), orally, once a day;?Continue Hydroxyurea Capsule, 500 MG, as directed, orally, once a day.?? Notes: Continue follow-up with Dr. Abad??5.?Multinodular goiter?LAB: P-TSH (Collection Date & Time - 02/26/2024 08:26 AM)?Normal* Value Reference Range T SH 1.08 0.43-5.25 - mU/L * Mandi Davis 02/28/2024 8:31:53 AM >See phone encounter * Procedure Codes: G 2211 Complex e/m visit add on * Follow Up: 6 Months * Images: Billing Information: * Visit Code: 04344 Office Visit, Est Pt., Level 4. * Procedure Codes: G2211 Complex e/m visit add on. * Electronic signature of Mandi Davis MD on 02/17/2025 at 07:59 AM EST Sign off status: Pending * Provider: Mandi Davis M.D. Date: 04/28/2023 Generated for Printi ng/Lolisg/eTransmitting on: 04/20/2024 07:59 AM EST History and Physical Notes * HPI (History of Present Illness) Category Sub-Category Detail Notes Category Not es [facility]ocrinology [facility]. Pt is fasting today. Pt sts that she has recently had a CBC and CMP but is due for a TSH and Lipid. Pt sts that she has no new concerns or complaints at this time Examination Category Sub-Category Detail Notes Category Not [...]
--- OUTSIDE RECORDS SUMMARY | 2024-08-26 04:00 | XMS_ITS ---
Author Organization [facility] Address [address] [facility] [address] [facility] [address] [place] [id number] Care Team Providers Care Asphalt Paving Machine Operator Name Role Phone Mandi Davis Primary Care Provider Allergies No Known Allergies Results Component Value Reference Range Notes P-Comprehensive Metabolic Pa claribel (CMP) Reviewed date:08/28/2024 08:51:05 AM Interpretation:normal Performing Lab: Notes/Report: CLIA: [id number] Ho Lal MD, Welding Machine Tender [address] [place] [address] , [place] [address] Test performed by Nautit Sodium 140 135-145 mmol/L Potassium 4.6 3.5-5.3 mmol/L Chloride 104 97-108 mmol/L CO2 24 22-32 mmol/L Glucose 95 65-99 mg/dL BUN 19 8-23 mg/dL Creatinine 0.85 0.50-1.00 mg/dL Calcium 9.8 8.6-10.4 mg/dL eGFR by Creatinine 70 >59 mL/min/1.73m2 Protein 7.4 6.0-8.3 g/dL Albumin 4.3 3.5-5.3 g/dL Alkaline Phosphatase 94 35-121 IU/L ALT (SGPT) 13 <5-47 IU/L AST (SGOT) 21 <5-40 IU/L Bilirubin, Total 0.6 <0.2-1.2 mg/dL A/G Ratio 1.4 1.1-2.5 P-Lipid Panel Reviewed date:08/28/2024 08:51:05 AM Interpretation:LDL 75 Performing Lab: Notes/Report: Test performed by Nautit [address] [place] [address] [place] [address] Ho Lal MD, Welding Machine Tender CLIA: [id number] Cholesterol 145 <200 mg/dL Triglycerides 86 <150 mg/dL HDL Cholesterol 53 >39 mg/dL Cholesterol / HDL Ratio 2.74 0.00-4.44 Ratio Non-HDL Cholesterol 92 <130 mg/dL LDL Cholesterol (Calculation) 75 <130 mg/dL LDL Cholesterol Levels* Less than 100 mg/dL Optimal 100 to 129 mg/dL Near Optimal/ Above Optimal 130 to 159 mg/dL Borderline High 160 to 189 mg/dL High 190 mg/dL and above Very High * Categories as recommended by the 2004 ATPIII guidelines LDL/HDL Ratio 1.4 <3.3 Ratio LDL Cholesterol Patient History Test Date: 08/28/2023 LDL Results: 73 Units: mg/dL % Change: -8% Test Date: 02/26/2024 LDL Results: 63 Units: mg/dL % Change: -13% Test Date: 08/26/2024 LDL Results: 75 Units: mg/dL % Change: +19% P-Magnesium Reviewed date:08/28/2024 08:51:05 AM Interpretation:2.2 Performing Lab: Notes/Report: Test performed by [facility]aut[facility] [address] [place] [address] , [address], [place] [address] Ho Lal MD, Welding Machine Tender CLIA: [id number] Magnesium 2.2 1.6-2.4 mg/dL P-TSH Reviewed date:08/28/2024 08:51:05 AM Interpretation:1.3 Performing Lab: Notes/Report: Test performed by [facility] [address] [place] [address] , [address], [place] [address] Ho Lal MD, Welding Machine Tender CLIA: [id number] TSH 1.30 0.43-5.25 mU/L REASON FOR VISIT 6 month check, Needs labs Medications Medication SIG (Take, Route, Frequency, Duration) Notes Start Date End Date Status Multiple Vitamin - 1 cap(s) orally once a day Active Aspirin 81 MG 1 tab(s) orally once a day; Duration: 30 day(s) Active Simvastatin 20 MG TAKE 1 TABLET AT BEDTIME; Duration: 90 Active Melatonin 5 MG 1/2 cap orally once a day (at bedtime) Not-Taking Lisinopril-hydroCHLOROthi azide 10-12.5 MG TAKE 1 TABLET EVERY DAY; Duration: 90 Active Fiber - as directed Orally A ctive Magnesium 250 MG 1 tablet with a meal Orally Once a day; Duration: 30 day(s) Active Iron 325 (65 Fe) MG 1 tablet Orally Thre e times a Week; Duration: 30 day(s) Active Hydroxyurea 500 MG as directed orally o nce a day Active Simvastatin 20 MG 1 tab(s) orally once a day (at bedtime) Active Calcium-Vitamin D-Minerals 600-800 MG-UNIT 1 tab(s) orally 2 times a day Active Aspirin 325 MG 1 tab(s) orally once a day Active Lisinopril-hydroCHLOROthi azide 10-12.5 MG 1 tab(s) orally once a day Active Vital Signs Blood pressure systolic 130 mm Hg 08/27/19 25 Blood pressure diastolic 76 mm Hg 025 Heart Rate 60 /min 08/26/2024 Height 63 in 08/26/2024 Weight 190.2 lbs 08/26/2024 BMI 33.69 kg/m2 08/26/2024 Encounters Encounter Location Date Provider Diagnosis [facility] [address] [place], [place] [id number] 08/26/2024 R Roge Davis Essential hypertensi on I10 ; Dyslipidemia E78.5 ; Osteopenia, unspecified location M85.80 ; Essential thrombocytosis D47.3 ; Multinodular goiter E04.2 ; Asymptomatic bilateral carotid artery stenosis I65.23 ; Macrocytic anemia D53.9 and BMI 33.0-33.9,adult Z68.33 Assessments Encounter Date Diagnosis (ICD Code) Assessment Notes Treatment Notes Treatment Clinical Notes Section Notes 08/26/2024 Essential hypertension (ICD-10 - I10) 08/26/2024 Dyslipidemia (ICD-10 - E78.5) 08/26/2024 Osteopenia, unspecified location (ICD-10 - M85.80) 08/26/2024 Essential thrombocytosis (ICD-10 - D47.3) Continue follow-up with Dr. Abad 08/26/2024 Multinodular goiter (ICD-10 - E04.2) 08/26/2024 Asymptomatic bilateral carotid artery stenosis (ICD-10 - I65.23) 08/26/2024 Macrocytic anemia (ICD-10 - D53.9) 08/26/2024 BMI 33.0-33.9,adult (ICD-10 - Z68.33) Plan Of Treatment Medication Medication Name Sig Start Date Stop Date Notes Hydroxyurea 500 MG as directed orally o nce a day Simvastatin 20 MG 1 tab(s) orally once a day (at bedtime) Calcium-Vitamin D-Minerals 600-800 MG-UNIT 1 tab(s) orally 2 times a day Aspirin 325 MG 1 tab(s) orally once a day Lisinopril-hydroCHLOROthiazi de 10-12.5 MG 1 tab(s) orally once a day Treatment Notes Assessment Notes Essential thrombocytosis Continue follow -up with Dr. Abad Next Appt Details Follow Up: 6 Months, Reason: Provider Name:Mandi Guan Juwanxiang stout, 02/26/2025 09:00:00 AM, [address], [address], [place], [id number], Progress Notes * SEBASTIÁN AUGUSTDOB:1945 (79 yo F)Acc No.[id number]:08/26/2024 Progress Notes Patient: Warren HARTMANAugust Provider: Mandi Davis M.D. :1945 A ge:79 Y S ex:Female Date:08/26/2024 Address:[address] [place] [address] , [place], [id number] Subjective: * Chief Complaints: * 1 . 6 month check. 2. Needs labs. * HPI: C ardiology: The pt is here for a check up on Hypertension and Hyperlipidemia. Pt states she is doing well and denies any new concerns today. Pt states she is fasting. Pt is needing refills sent to [facility] mail order pharmacy. Denies : Chest Pain. D enies : Short of Breath. D enies : Dizziness. D enies : Palpitations. H ematology: She continues to follow with Dr. Abad with no new concerns. * ROS: D ERMATOLOGY: no R shereen. [...] orally 2 times a day , Taking Hydroxyurea 500 MG Capsule as directed orally once a day , Taking Fiber - Capsule as directed Orally , [...] cap(s) orally once a day , Taking Simvastatin 20 MG Tablet TAKE 1 TABLET AT BEDTIME , Taking Lisinopril-hydroCHLOROthiazide 10-12.5 MG Tablet TAKE 1 TABLET EVERY DAY , Not- Taking Melatonin 5 MG Capsule 1/2 cap orally once a day (at bedtime) , Discontinued Aspirin 325 MG Tablet 1 tab(s) orally once a day , Medication List reviewed and reconciled with the patient * Allergies: N .K.D.A. Objective: * Vitals: W t: 190.2, Temp: 98.3, BP: 130/76, HR: 60, Nurse: JEWELL, Ht: 63, BMI:33.69. * Examination: G eneral Examination: General Appearance: N AD. H EENT: sclera and conjunctiva clear, PERRLA, TM's normal, translucent. O ral cavity: n o lesions, mucosa moist and WNL, no erythema. N moise: s upple, no lymphadenopathy, no carotid bruits. C hest: n ormal shape and expansion. H eart: R SR. L ungs: c lear to auscultation. E xtremities: T race left ankle edema. Assessment: * Assessment: 1. E ssential hypertension - I10 (Primary) 2 . D yslipidemia - E78.5 ? 3 . O steopenia, unspecified location - M85.80 4 . E ssential thrombocytosis - D47.3 5 . M ultinodular goiter - E04.2 6 . A symptomatic bilateral carotid artery stenosis - I65.23 7 . M acrocytic anemia - D53.9 8 . B WV 33.0-33.9,adult - Z68.33 Plan: * Treatment: Value Reference Range A /G Ratio 1.4 1.1-2.5 - * A lbumin 4.3 3.5-5.3 - g/dL * A lkaline Phosphatase 94 35-121 - IU/L * A LT (SGPT) 13 <5-47 - IU/L * A ST (SGOT) 21 <5-40 - IU/L * B ilirubin, Total 0.6 <0.2-1.2 - mg/dL * B UN 19 8-23 - mg/dL * C alcium 9.8 8.6-10.4 - mg/dL * C hloride 104 97-108 - mmol/L * C O2 24 22-32 - mmol/L * C reatinine 0.85 0.50-1.00 - mg/dL * G lucose 95 65-99 - mg/dL * P otassium 4.6 3.5-5.3 - mmol/L * S odium 140 135-145 - mmol/L * P rotein 7.4 6.0-8.3 - g/dL * e GFR by Creatinine 70 >59 - mL/min/1.73m2 * Mandi Davis 08/28/2024 08:50:50 AM EDT > See phone encounter ?LAB: P-Magnesium (Collection Date & Time - 08/26/2024 08:13 AM)?2.2* Value Reference Range M agnesium 2.2 1.6-2.4 - mg/dL * Mandi Davis 08/28/2024 08:50:50 AM EDT > See phone encounter 2.?Dyslipidemia? Refill Simvastatin Tablet, 20 MG, 1 tab(s), orally, once a day (at bedtime), 90, Refills 1.?LAB: P-Lipid Panel (Collection Date & Time - 08/26/2024 08:13 AM)?LDL 75* Value Reference Range C holesterol / HDL Ratio 2.74 0.00-4.44 - Ratio * C holesterol 145 <200 - mg/dL * H DL Cholesterol 53 >39 - mg/dL * L DL Cholesterol (Calculation) 75 <130 - mg/d L * L DL/HDL Ratio 1.4 <3.3 - Ratio * N on-HDL Cholesterol 92 <130 - mg/dL * T riglycerides 86 <150 - mg/dL * Mandi Davis 08/28/2024 08:50:50 AM EDT > See phone encounter 3.?Osteopenia, unspecified location? Continue Calcium-Vitamin D-Minerals Tablet Chewable, 600-800 MG-UNIT, 1 tab(s), orally, 2 times a day.??4.?Essential thrombocytosis? Continue Aspirin Tablet, 325 MG, 1 tab(s), orally, once a day;?Continue Hydroxyurea Capsule, 500 MG, as directed, orally, once a day.?? Notes: Continue follow-up with Dr. Abad??5.?Multinodular goiter?LAB: P-TSH (Collection Date & Time - 08/26/2024 08:13 AM)?1.3* Value Reference Range T SH 1.30 0.43-5.25 - mU/L * Mandi Davis 08/28/2024 08:50:50 AM EDT > See phone encounter * Procedure Codes: G 2211 Complex e/m visit add on, 1036F TOBACCO NON-USER, G8950 PREHTN/HTN BP DOC INDCD F/U DOC, G8752 MOST RECENT SYSTOLIC BP < 140MM HG, G8754 MOST RECENT DIASTOLIC BP < 90MM HG * Follow Up: 6 Months * Images: Billing Information: * Visit Code: 14421 Office Visit, Est Pt., Level 4. * Procedure Codes: G2211 Complex e/m visit add on. 1036F TOBACCO NON-USER. G8950 PREHTN/HTN BP DOC INDCD F/U DOC. G8752 MOST RECENT SYSTOLIC BP < 140MM HG. G8754 MOST RECENT DIASTOLIC BP < 90MM HG. * Electronic signature of Mandi Davis MD on 02/17/2025 at 07:58 AM EST Sign off status: Pending * Provider: Mandi Davis M.D. Date: 0 08/26/2024 Generated for Julio Cesari sophie/Kale/Perezitting on: 1 04/20/2024 07:58 AM EST History and Physical Notes * HPI (History of Present Illness) Category Sub-Category Detail Notes Category Not es Cardiology Short of Breath Chest Pain Palpitations Dizziness Examination Category Sub-Category Detail Notes Category Not es General Examination HEENT: sclera and c onjunctiva clear, PERRLA, TM's normal, translucent Heart: RSR Lungs: clear to auscultatio n Extremities: Trace left ankle mira ma General Appearance: NAD Neck: supple, no lymphaden opathy, no carotid bruits Oral cavity: no lesions, mucosa m oist and WNL, no erythema Chest: normal shape and exp ansion
--- OUTSIDE RECORDS SUMMARY | 2025-02-17 07:59 | XMS_ITS | Clinical Summary ---
[facility] Address [address] [place] [address] Care Team Providers Care Health Technician Name Role Phone Jacinto Davis MD Primary Care Provider Allergies No known active allergies Medications Sod Picosulfate-Mag Ox-Cit Acd 10-3.5-12 MG-GM -GM/160ML solutionIndicat ions:Screening for colon cancer Take 1 kit by mouth Take As Directed. Follow instructions that were mailed to your home. If you didn't receive these call [phone]. 320 mL Active Family History Medical History Relation Name Comments Breast cancer Maternal Aunt Ovarian cancer Mother approximate Relation Name Status Comments Maternal Aunt Mother Social History Tobacco Use Types Packs/Day Years Used Date Smoking Tobacco: Never Assessed Comments No Sex and Gender Information Value Date Recorded Sex Assigned at Not on file Legal Sex Female 12:36 PM EDT Gender Identity Not on file Sexual Orientation Not on file Plan of Treatment Health Maintenance Due Date Last Done Comments DXA SCAN 1945 TDAP/TD VACCINES (1 - Tdap) 1964 ANNUAL PHYSICAL 06/28/2020 HEPATITIS C SCREENING 06/28/2020 RSV Vaccine - Adults (1 - 1- dose 75+ series) 2020 INFLUENZA VACCINE 10/10/2024 12/24/2023, , 12/14/2021, Additional history exists COVID-19 Vaccine (7 - 2024-2 6 season) 2024 01/10/2023, 01/11/2022, 06/29/2021, Additional history exists COLONOSCOPY Discontinued 08/10/2020 COLORECTAL CANCER SCREENING Discontinued ZOSTER VACCINE Completed 05/04/2021, 01/14/2021 Pneumococcal Vaccine 50+ Completed 02/22/2023, 02/09 MAMMOGRAM Discontinued 10/10/2024, 09/11, 10/08/2023, Additional history exists COLOGUARD Discontinued COLON CANCER SCREENING 5 YEA R SIGMOIDOSCOPY Discontinued CT COLONOGRAPHY Discontinued FECAL OCCULT BLOOD TEST Discontinued FIT Testing (1 year) Discontinued Procedures Procedure Name Priority Date/Time Associated Diagnosis Comments MAMMO SCREENING DIGITAL TOMOSYNTHESIS BILATERAL W CAD Routine 10/09/2024 9:51 AM EDT Screening mammogram for breast cancer SCANNED - COLONOSCOPY 08/10/2020 from Last 3 Months or Most Recently Relevant to Health Maintenance Results * Mammo Screening Digital Tomosynthesis Bilateral With CAD (10/09/2024 9:51 AM EDT) Anatomical Region Laterality Modality Breast N/A Mammography 10/10/2024 12:0 9 PM EDT Impressions 10/10/2024 12:12 PM EDT Benign screening mammogram. RECOMMENDATION: Continue annual screening mammography. BI-RADS CATEGORY 2, BENIGN. CAD was utilized. The standard false-negative rate of mammography is between 10% and 25%. Complex patterns or increased breast density will markedly elevate the false-negative rate of mammography. A letter, in lay terminology, with the results of this exam will be mailed to the patient. 10/10/2024 12:[address] Onel Dacosta MD on Narrative 10/10/2024 12:12 PM EDT DIGITAL SCREENING MAMMOGRAM WITH TOMOSYNTHESIS HISTORY: Screening Mammography. Low dose full field digital breast tomosynthesis imaging was performed with 2D and 3D acquisitions consisting of bilateral CC and MLO views. Examination is compared to prior examination dating back to 09/21/2016. Examination is read in conjunction with computer aided detection. FINDINGS: There are scattered areas of fibroglandular density. No suspicious masses, microcalcifications or areas of architectural distortion are identified. Left breast post excisional biopsy changes are stable. Jacinto Davis MD IMG MAMMOGRAPHY ORDERA BLES Final Result * SCANNED - COLONOSCOPY (08/10/2020) Osmin Bhatia MD CHART REVIEW TABS Final Res ult from Last 3 Months or Most Recently Relevant to Health Maintenance Insurance [place] [id number] [facility] MEDICARE ADVANTAGE PPO Care Teams Health Technician Relationship Specialty Start Date End Date Jacinto Davis MD [address] [facility] [address] [place] [address] PCP - General Family Medicine 09/24/17
--- OUTSIDE RECORDS SUMMARY | 2025-02-17 07:59 | XMS_ITS | Clinical Summary ---
Author Organization [facility] Address [address] [place] [address] Care Team Providers Care Plexiglas Former Name Role Phone Jacinto Davis MD Primary Care Provider +1- [phone] Family History Medical History Relation Name Comments [...] Care Team (Late st Contact Info) Description 11/20/2025 10:00 AM EDT Ovarian Cancer Screening [facility] [address] [facility], [address] [place] [address] Health Maintenance Due Date Last Done Comments [facility]Y-Bone Density Scan 1945 [facility]-Depression Screening 1945 [facility]-Hepatitis C Screening 1945 [facility]-Infant/Child/Adol SDOH Screenings 1945 UKY- SDOH Screenings 08/14/1963 UKY-Adult SDOH Screenings 08/14/1963 UKY-DTaP,Tdap,and Td Vaccines (1 - Tdap) 1964 [id number]-41 Vaccine (7 - season) 2024 01/10/2023, 01/11/2022, 06/29/2021, Additional history exists [facility]Y-Influenza Vaccine (#1) 11/10/202412/23, 12/11/2022, 12/14/2021, Additional history exists UKY-Zoster Vaccines Completed 05/04/2021, 01/14/2021, 02/25/2014 UKY-Pneumococcal Vaccine: 50+ Years Completed 02/22/2023, 02/22/2021, 02/23/2015, Additional history exists [facility]Y-RSV Vaccine: 60+ Years or Completed 02/22/2023 [...] age to complete this topic Care Teams Plexiglas Former Relationship Specialty Start Date End Date Jacinto Davis MD [address] [place] [place] [address] PCP - General 11/03/21
--- OUTSIDE RECORDS SUMMARY | 2025-02-17 07:59 | XMS_ITS | Patient Health Record ---
[facility] [address] [facility] [address] [place] [id number] Care Team Providers Care Director Of Finance Name Role Phone Mnadi Davis Primary Care Provider Allergies No Known Allergies Results Component Value Reference Range Notes P-Comprehensive Metabolic Pa claribel (CMP) Reviewed date:08/28/2024 08:51:05 AM Interpretation:normal Performing Lab: Notes/Report: Test performed by [facility] [address] [place] [address] , [address], [address] Ho Lal MD, Ladies' [employer] Trimmer CLIA: [id number] Sodium 140 135-145 mmol/L Potassium 4.6 3.5-5.3 [...] 75 Performing Lab: Notes/Report: Test performed by [facility] [address] [place], [place] [address] [place] , [address], [address] Ho Lal MD, Ladies' [employer] Trimmer ZACK: [id number] Cholesterol 145 <200 mg/dL Triglycerides 86 <150 [...] Interpretation:2.2 Performing Lab: Notes/Report: Test performed by [facility] [address] , [address], [place] [address] Ho Lal MD, Ladies' Hat Trimmer CLIA: [id number] Magnesium 2.2 1.6-2.4 mg/dL P-TSH Reviewed date:08/28/2024 08:51:05 AM Interpretation:1.3 Performing Lab: Notes/Report: Test performed by [facility] [address] [place] [address] , [address], [place] [address] Ho Lal MD, [employer]' [employer] Trimmer CLIA: [id number] TSH 1.30 0.43-5.25 mU/L Carotid Duplex Reviewed date:10/05/2024 10:44:57 PM Interpretation:stenosis less than 50% Performing Lab: Notes/Report: stenosis less than 50% P-Lipid Panel Reviewed date:02/28/2024 08:32:02 AM Interpretation:Normal Performing Lab: Notes/Report: Test performed by [facility] [address] [place] [address] , [address], [place] [address] Ho Lal MD, Ladies' [employer] Trimmer CLIA: [id number] Cholesterol 132 <200 mg/dL Triglycerides 50 <150 [...] Interpretation:Normal Performing Lab: Notes/Report: Test performed by [facility] [facility] , [address], [address] Ho Lal MD, Ladies' Hat Trimmer CLIA: [id number] TSH 1.08 0.43-5.25 mU/L Reason For Referral [...] W/U Status Risk Notes Problem Essential hypertension (12287573) Essential hypertension (I10) Active confirmed Problem BMI 30+ - obesity (920486601) BMI 32.0-32.9,adult (Z68.32) Active confirmed Problem Obese class I (405258402435684) BMI 33.0-33.9,adult (Z68.33) Active confirmed Problem Occlusion and stenosis of multiple and bilateral cerebral arteries (888274263) Occlusion and stenosis of bilateral carotid arteries (I65.23) Active confirmed Problem Primary osteoarthritis (736100515) Primary osteoarthritis involving multiple joints (M15.0) Active confirmed Problem Neuropathy (317146015) Neuropathy (G62.9) Active confirmed Problem Multinodular goiter (717958997) Multinodular goiter (E04.2) Active confirmed Problem Macrocytic anemia (07369186) Macrocytic anemia (D53.9) Active confirmed Problem Dyslipidemia (661986002) Dyslipidemia (E78.5) Active confirmed Problem Osteopenia (087200358) Osteopenia, unspecified location (M85.80) Active confirmed Problem Essential thrombocytosis (834942020) Essential thrombocytosis (D47.3) Active confirmed Problem Localized, primary osteoarthritis of the ankle and/or foot (635891757) 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) Active confirmed Problem Occlusion and stenosis of multiple and bilateral cerebral arteries (354683760) Asymptomatic bilateral carotid artery stenosis (I65.23) Active confirmed Vital Signs Heart Rate 60 /min 08/26/2024 Blood pressure diastolic 76 mm Hg 08/26/2024 Height 63 in 08/26/2024 Blood pressure systolic 130 mm Hg 08/26/2024 Weight 190.2 lbs 08/26/2024 BMI 33.69 kg/m2 08/26/2024 Encounters Encounter Location Date Provider Diagnosis [facility] [address] [facility] [address] [place], [place] [id number] 02/26/2024 R Roge Davis Essential hypertensi on I10 ; Dyslipidemia E78.5 ; Osteopenia, unspecified location M85.80 ; Essential thrombocytosis D47.3 ; Multinodular goiter E04.2 ; Asymptomatic bilateral carotid artery stenosis I65.23 and Macrocytic anemia D53.9 [facility] [address] [place], [place] [id number] 08/26/2024 R Roge Popet Essential hypertensi on I10 ; Dyslipidemia E78.5 ; Osteopenia, unspecified location M85.80 ; Essential thrombocytosis D47.3 ; Multinodular goiter E04.2 ; Asymptomatic bilateral carotid artery stenosis I65.23 ; Macrocytic anemia D53.9 and BMI 33.0-33.9,adult Z68.33 [facility] [address] [place], [place] [id number] 02/28/2024 R Roge Ryan [facility] [address] [facility] [address] [place], [place] [id number] 08/28/2024 R Roge Ryan [facility] [address] [facility] [address] [place], [place] [id number] 09/24/2024 R Roge Ryan [facility] [address] [facility] [address] [place], [place] [id number] 10/05/2024 R Roge Echeverriaeet Assessments Encounter Date Diagnosis (ICD Code) Assessment [...] 33.0-33.9,adult (ICD-10 - Z68.33) Plan Of Treatment Next Appt Details Provider Name:Mandi Roge Butt argelia, 02/26/2025 09:00:00 AM, [address], [address], [place], [place], [id number], Insurance Providers Payer Name Payer Address Payer Phone Subscriber Number Group Number Insured Name Patient Relationship to Insured Coverage Start Date Coverage End Date [employer] (MEDICAR E) [address] [address] [place] [address] [id number] August Self - patient is the insured [...] teeth removed 1971 sub-total thyroidectomy for goiter 1975 cholecystectomy 1998 foreign body removed from left ear 2017 cataract surgery both eyes 2016 Laminectomy L4 L5 1983 C-scope 07/2020
[2025-02-17 08:18] LABS: Hematocrit 33.3 % (37.0-47.0); Hemoglobin 10.4 g/dL (12.2-16.2); Immature Granulocytes % 1.7 %; Mean Corpuscular HGB Conc 31.2 g/dL (31.8-35.4); Mean Corpuscular Hemoglobin 33.8 pg (27.0-31.2); Mean Corpuscular Volume 108.1 fl (81-99); Nucleated Red Blood Cells % 0.6 %; Platelet Count 533 K/mm3 (142-424); Red Blood Count 3.08 M/mm3 (4.20-5.40); Red Cell Distribution Width-SD 82.3 fL; White Blood Count 7.1 K/mm3 (4.8-10.8)
[2025-02-17 08:51] LABS: Alanine Aminotransferase 19 U/L (12-78); Albumin Level 4.2 g/dl (3.5-5.0); Albumin/Globulin Ratio 1.4 (1.1-1.8); Alkaline Phosphatase 79 U/L (38-126); Anion Gap 13.0 mEq/L (5-15); Aspartate Amino Transferase 27 U/L (14-36); Bilirubin,Total 0.6 mg/dl (0.2-1.3); Blood Urea Nitrogen 20 mg/dl (7-17); Calcium 9.9 mg/dl (8.4-10.2); Carbon Dioxide 26 mmol/L (22.0-30.0); Chloride 107 mmol/L (98-107); Creatinine,Serum 0.90 mg/dl (0.52-1.04); Estimated Glomerular Filt Rate 60 ml/min (>60); GFR (African American) 73 ML/MIN (>60); Globulin 2.9 g/dL (1.3-3.2); Glucose 103 mg/dl (74-100); Potassium 5.0 mmoL/L (3.5-5.1); Sodium 141 mmol/L (136-145); Total Protein,Serum 7.1 g/dl (6.3-8.2)
== END 2025-02-17 23:59 | disposition home or self-care (01) ==
LOC: LAB 07:44
PROVIDERS: PCP Family Medicine; Visit Provider Internal Medicine Medical Oncology
DX: D75.839 Thrombocytosis, unspecified (principal)
CPT/HCPCS: 36415; 80053; 85025